=== PATIENT | female | born 1960 | race Caucasian/White ===

== ENCOUNTER 2019-12-24 17:35 | Inpatient (IN) | payer OTHER ==
[~2019-12-24] VITALS: Ht 142.2 cm; Wt 49.9 kg
--- NOTE | 2019-12-24 21:40 | NUR ---
Pt rec'd from [facility] from [facility] ED on settings of AC 14, VT 400, PEEP +5 and FIO2-50%. No resp. distress noted. Pt is awake and alert. Pt to be monitored throughout the shift and PRN SX. Shiley 6 is patent and secure; B/U Shiley 6 and BVM are both at bedside. Alexandre alarm parameters have been checked and remain audible.
[2019-12-24 22:00] VITALS: BP 118/86
--- NOTE | 2019-12-24 22:30 | NUR ---
received from [facility] direct admit dx: respiratory failure .came via paramedics .patient trach to vent ,able to mouth words and able to write intent . connected to icu monitor and respiratory therapist connecting patient to vent she has trach Shiley no 6,ac16/400/50% peep of 5 .rr 22 to 26 saturation 100%.she has a peg clamp .f/c to bsd .and photo taken to different skin issues ,s/p left hip surgery. call light palced with in reach and oriented with monitor .
--- NOTE | 2019-12-24 23:00 | NUR ---
called [facility] for admission orders spoked with freida stewart .
[2019-12-24] MEDS ORDERED: HYDROCODONE/APAP 5-325MG TABLET PO PRN (23:30)
[2019-12-24] MEDS ORDERED: ALBUTEROL SULFATE 2.5 MG/3 ML NEBU NEB PRN (23:30)
[2019-12-24] MEDS ORDERED: ZOLPIDEM 5 MG TABLET PO PRN (23:30)
[2019-12-24] MEDS ORDERED: IPRATROPIUM BROMIDE 0.5 MG/2.5 ML NEBU NEB PRN (23:30)
[2019-12-24] MEDS ORDERED: Z GUARD REMEDY PASTE 57 GM TUBE TOP PRN (23:30)
[2019-12-24] MEDS ORDERED: VANCOMYCIN IV 1,000 MG in IV DEXTROSE 5% 250 ML IV SCH (23:30)
[2019-12-24] MEDS ORDERED: ACETAMINOPHEN 325 MG TABLET PO PRN (23:30)
[2019-12-25] VITALS (7 sets, daily range): BP systolic 105–142; BP diastolic 70–100
[2019-12-25] MEDS: ONDANSETRON 4 MG/2 ML VIAL IV PRN (00:01)
[2019-12-25] MEDS: ENOXAPARIN SODIUM 30 MG/0.3 ML DISP.SYRIN SQ SCH ×2 (00:02→20:41)
[2019-12-25] MEDS ORDERED: PIPERACILLIN/TAZOBACTAM/D5W 50 ML IV ONE (00:59)
[2019-12-25] MEDS ORDERED: VANCOMYCIN IV 200 ML ONE (00:59)
--- NOTE | 2019-12-25 01:00 | NUR ---
called nursing curing room supervisor for dvt /scds pump .
[2019-12-25] MEDS ORDERED: MORPHINE SULFATE 2 MG/1 ML DISP.SYRIN IV ONE (02:30)
[2019-12-25] MEDS ORDERED: HYDROCODONE/APAP 10-325 MG TABLET PO PRN (02:30)
[2019-12-25] MEDS ORDERED: MORPHINE SULFATE 20 MG/1 ML ORAL LIQ. PO PRN (02:30)
--- NOTE | 2019-12-25 02:46 | NUR ---
CALLED [facility] FOR PAIN MEDICATION PATIENT VERY RESTLESS AND BANGING THE CALL LIGHT ,VERY ANXIOUS AND POINTING TO HER BACK AND LEFT HIP PAIN . 06/04.
[2019-12-25] MEDS ORDERED: MORPHINE SULFATE 2 MG/1 ML DISP.SYRIN ONE (02:59)
--- NOTE | 2019-12-25 04:34 | NUR ---
am care done ,changed soiled linens and gown . changed peg tube dressing ,photo taken site red and with greenish residual , abdomen distended but soft and + b/s in all quadrant .f/c done and oral care done.
[2019-12-25] MEDS: methylPREDNISolone SOD SUCC 125 MG/2 ML VIAL IV SCH ×5 (05:40→23:33)
[2019-12-25 05:47] LABS: BASOPHILS % (AUTO) 0.1 % (0.0-2.0); HEMATOCRIT 36.3 % (31.2-41.9); HEMOGLOBIN 12.2 g/dL (10.9-14.3); LYMPHOCYTES # (AUTO) 0.3 K/uL (20.0-40.0); LYMPHOCYTES % (AUTO) 3.2 % (20.5-51.5); MEAN CORPUSCULAR HEMOGLOBIN 30.4 uug (24.7-32.8); MEAN CORPUSCULAR HGB CONC 34 g/dL (32.3-35.6); MONOCYTES # (AUTO) 0.2 K/uL (2.0-10.0); MONOCYTES % (AUTO) 2.2 % (0.0-11.0); NEUTROPHILS # (AUTO) 8.3 K/uL (1.8-8.9); NEUTROPHILS % (AUTO) 94.5 % (38.5-71.5); PLATELET COUNT (AUTO) 331 K/uL (179-408); RED BLOOD CELL COUNT(AUTO) 4.03 MIL/uL (3.63-4.92); WHITE BLOOD COUNT (AUTO) 8.8 K/uL (3.8-11.8)
[2019-12-25] MEDS ORDERED: PIPERACILLIN SODIUM/TAZOBACTAM 3.375 G in IV DEXTROSE 5% 50 ML IV SCH ×2 (06:00→22:00)
[2019-12-25 06:03] LABS: ALANINE AMINOTRANSFERASE 97 U/L (14-59); ALKALINE PHOSPHATASE 161 U/L (50-136); ASPARTATE AMINOTRANSFERASE 37 U/L (15-37); BILIRUBIN,TOTAL 1.1 mg/dL (0.2-1.0); CARBON DIOXIDE 31 mmol/L (21-32); CHLORIDE 97 mmol/L (98-107); CHOLESTEROL 155 mg/dL (<200); CREATININE 0.3 mg/dL (0.6-1.3); GLUCOSE 113 mg/dL (74-106); HDL CHOLESTEROL 46 mg/dL (40-60); MAGNESIUM 1.9 mg/dL (1.8-2.4); PHOSPHOROUS 1.6 mg/dL (2.5-4.9); POTASSIUM 3.9 mmol/L (3.5-5.1); TRIGLYCERIDES 93 MG/DL (30-150); UREA NITROGEN, BLOOD 30 mg/dL (7-18)
[2019-12-25 06:06] LABS: THYROID STIMULATING HORMONE 0.787 mIU/mL (0.358-3.740)
[2019-12-25 08:27] LABS: ABG HCO3 31.3 mmol/L; ABG PCO2 48.1 mmHg (35.0-45.0); ABG PH 7.431 (7.350-7.450); ABG PO2 202.2 mmHg (75.0-100.0); ABG SITE LEFT RADIAL; ABG TOTAL HEMOGLOBIN 13.1 G/dL (12.0-16.0); COHb 1.2 % (0.5-1.5); MetHb 0.3 % (0.0-1.5); O2Hb 98.3 % (94.0-97.0); VENT MODE VENT - A/C; VT, ABG 400 mL
[2019-12-25] MEDS ORDERED: ACETAMINOPHEN 650 MG/20.3 ML LIQUID UDC GT PRN (09:00)
[2019-12-25] MEDS ORDERED: POTASSIUM PHOSPHATE MM 15 MMOL in IV NORMAL SALINE 250 ML IV ONE (09:00)
--- NOTE | 2019-12-25 09:20 | NUR ---
Clinical Pharmacy Note: Vancomycin Pharmacy To Dose Subjective: To start vancomycin in this 59 y/o female for suspected infection (waiting for MD note) Objective: weight 52kg height 142cm BUN/SCr 30/0.3 wbc 8.8 temp 98.2 Assessment/Plan Patient received vanco 1gm IVPB x1 today at 0130. Will start vanco 750mg IVPB q22hr for today estimated trough of 16 mcg/ml (if srcr 1.0). 1st dose due tonight at 2300. Will order trough before 4th scheduled dose (not yet ordered). Will will review renal function & adjust the dose if needed. Will follow
--- NOTE | 2019-12-25 09:30 | NUR ---
Seen,examined by YENNY De La Torre.Informed regarding Pt leaking bile around GT.
--- NOTE | 2019-12-25 09:30 | NUR ---
Seen,examined by
[2019-12-25] MEDS: PANTOPRAZOLE SODIUM 40 MG VIAL IV SCH (09:33)
[2019-12-25] MEDS: MORPHINE SULFATE 4 MG/1 ML DISP.SYRIN IV PRN ×4 (09:34→23:35)
[2019-12-25] MEDS ORDERED: ACET160S GT (11:03)
[2019-12-25] MEDS ORDERED: ACET160E61 PO (11:03)
[2019-12-25] MEDS ORDERED: ACET-2070 PO (11:03)
[2019-12-25] MEDS ORDERED: ASPI81TA31 GT (11:38)
[2019-12-25] MEDS ORDERED: CELE100C GT (11:41)
[2019-12-25] MEDS ORDERED: BISA10SU61 RC (11:54)
[2019-12-25] MEDS ORDERED: MULT1TAB73 GT (11:54)
[2019-12-25] MEDS: ALBUTEROL SULFATE 2.5 MG/3 ML NEBU NEB SCH ×3 (11:55→19:30)
[2019-12-25] MEDS: IPRATROPIUM BROMIDE 0.5 MG/2.5 ML NEBU NEB SCH ×3 (11:55→19:30)
--- NOTE | 2019-12-25 12:34 | NUR ---
WOUND CARE CONSULT: REVIEWED PHOTO DOCUMENTATION, CHART AND SPOKE WITH NURSING STAFF. ATTEMPTED TO DO SKIN ASSESSMENT BUT PT REFUSED AND STATED WAS TOO UNCOMFORTABLE AND SHORT OF BREATH. PT NOTED TO HAVE MULTIPLE WOUNDS PRESENT ON ADMISSION. G TUBE NOTED TO BE LEAKING GREENISH DRAINAGE. G TUBE IS CLAMPED. ALSO LEFT HIP INCISION WEEPING WITH EDEMA NOTED. RECOMMEND ORTHO FOLLOWUP. DISCUSSED WITH RN AND PMD TO CALL ORTHO. RN TO DISCUSS WITH PMD. RECOMMEND SURGICAL CONSULT. DR LIRA NOTIFIED OF CONSULT REQUEST. FIRST STEP LOW AIRLOSS MATTRESS ON ORDER. RECOMMENDATIONS MADE FOR SKIN PROTECTION. DISCUSSED WITH NURSING STAFF.
[2019-12-25] MEDS: METOCLOPRAMIDE HCL 10 MG/10 ML UDC GT SCH ×3 (12:49→23:34)
[2019-12-25] MEDS ORDERED: BISACODYL 10 MG SUPP.RECT RC PRN (13:15)
[2019-12-25] MEDS ORDERED: PIPERACILLIN SODIUM/TAZOBACTAM 3.375 G in IV DEXTROSE 5% 50 ML IV ONE (14:00)
[2019-12-25] MEDS: LORAZEPAM 1 MG TABLET GT PRN ×2 (15:20→22:16)
[2019-12-25] MEDS ORDERED: IOHEXOL 350 100 ML INFUS..BTL ONE (17:01)
[2019-12-25] MEDS ORDERED: IV NORMAL SALINE 250 ML IV ONE (17:01)
[2019-12-25] MEDS ORDERED: SWABABLE VALVE TRANSFER SET EA MC ONE (17:01)
[2019-12-25] MEDS: CELECOXIB 100 MG CAPSULE GT SCH (18:03)
[2019-12-25] MEDS: CLOTRIMAZOLE 1% CREAM 30 GM TUBE TOP SCH ×2 (18:03→22:28)
--- NOTE | 2019-12-25 20:00 | NUR ---
RECEIVED PT NONRESPONSIVE TO ANY STIMULI. ORALLY INTUBATED TO VENT W/ SETTINGS OF AC-12,TV-500,FIO2-50%,W/ O2 SAT OF 100%. NGT ON R NARE, CHECKED PLACEMENT & CHECKED RESIDUAL 10CC NOTED, TUBE FDG OF GLUCERNA 1.2 @ 30CC /HR. IVF D51/4 NS W/ 20MEQ KCL @ 75CC/HR ON RAC. TEMP- 101.5, COOLING MEASURES GIVEN. TYLENOL LIQUID GIVEN VIA NGT. REPOSITIONED ON HIS SIDE W/ HOB ELEVATED. Addendum: 12/25/19 at 2312 by NOEL PACHECO RN CHARTING IS ERROR.,WRONG PT
--- NOTE | 2019-12-25 20:00 | NUR ---
RECEIVED PT FOLLOWS TO COMMAND. TRACH TO VENT W/ SETTINGS OF AC-16,TV-400, FIO2-50%, PEEP-+5 W/ O2 SAT OF 98%. SUCTIONED VIA TRACH W/ BLOOD TINGED THICK MUCOUS.PT PULLED OUT HEP LOCK ON R WRIST.G-TUBE INTACT& PATENT W/ BILE DRAINAGE AROUND THE AREA.REPOSITIONED PT ON HER SIDE W/ HOB ELEVATED. RESTARTED HEP LOCK W/ #22 ANGIO CATHON L HAND.
[2019-12-25] MEDS: CEFEPIME HCL 1 G in IV DEXTROSE 5% 50 ML IV SCH (21:24)
--- NOTE | 2019-12-25 21:40 | NUR ---
WOUND CULTURE & URINE CULTURE SENT TO LAB.
--- NOTE | 2019-12-25 22:15 | NUR ---
SPUTUM SEND TO LAB FOR CULTURE & GRAM STAIN.
[2019-12-25] MEDS: ZOLPIDEM 5 MG TABLET GT PRN (22:16)
[2019-12-25] MEDS: VANCOMYCIN IV 750 MG in IV DEXTROSE 5% 250 ML IV SCH (22:28)
[2019-12-26] MEDS: MORPHINE SULFATE 4 MG/1 ML DISP.SYRIN IV PRN ×2 (03:32→09:35)
[2019-12-26 04:00] VITALS: BP 113/90
--- NOTE | 2019-12-26 05:00 | NUR ---
AM CARE DONE. CLEANED WOUND OF R ARM & WRAPPED W/ KERLIX DRSG. CLEANED G-TUBE SITE & DRSG APPLIED, CONT OOZING BILE DRAINAGE AROUND THE SITE. WOUND CARE DONE ON HER BACK. REPOSITIONED ON HER SIDE W/ HOB ELEVATED.
[2019-12-26] MEDS: CEFEPIME HCL 1 G in IV DEXTROSE 5% 50 ML IV SCH ×3 (05:24→23:30)
[2019-12-26] MEDS: methylPREDNISolone SOD SUCC 125 MG/2 ML VIAL IV SCH (05:24)
[2019-12-26] MEDS: METOCLOPRAMIDE HCL 10 MG/10 ML UDC GT SCH ×3 (05:25→17:37)
[2019-12-26 05:43] LABS: ABG BASE EXCESS 3.5 mmol/L; ABG HCO3 28.3 mmol/L; ABG PCO2 43.7 mmHg (35.0-45.0); ABG PH 7.429 (7.350-7.450); ABG PO2 118.3 mmHg (75.0-100.0); ABG SITE LEFT RADIAL; ABG TOTAL HEMOGLOBIN 13.4 G/dL (12.0-16.0); COHb 1.6 % (0.5-1.5); MetHb 0.3 % (0.0-1.5); O2Hb 97.2 % (94.0-97.0); VENT MODE VENT - A/C; VT, ABG 400 mL
[2019-12-26 06:13] LABS: BASOPHILS # (AUTO) 0.1 K/uL (0.0-8.0); BASOPHILS % (AUTO) 0.3 % (0.0-2.0); HEMATOCRIT 38.8 % (31.2-41.9); HEMOGLOBIN 12.6 g/dL (10.9-14.3); LYMPHOCYTES # (AUTO) 0.2 K/uL (20.0-40.0); LYMPHOCYTES % (AUTO) 0.8 % (20.5-51.5); MEAN CORPUSCULAR HEMOGLOBIN 29.3 uug (24.7-32.8); MEAN CORPUSCULAR HGB CONC 33 g/dL (32.3-35.6); MEAN CORPUSCULAR VOLUME 90.3 fL (75.5-95.3); MONOCYTES # (AUTO) 1.3 K/uL (2.0-10.0); MONOCYTES % (AUTO) 4.8 % (0.0-11.0); NEUTROPHILS # (AUTO) 25.8 K/uL (1.8-8.9); NEUTROPHILS % (AUTO) 94.1 % (38.5-71.5); PLATELET COUNT (AUTO) 359 K/uL (179-408); WHITE BLOOD COUNT (AUTO) 27.4 K/uL (3.8-11.8)
[2019-12-26 06:45] LABS: CARBON DIOXIDE 30 mmol/L (21-32); CHLORIDE 98 mmol/L (98-107); CREATININE 0.3 mg/dL (0.6-1.3); GLUCOSE 130 mg/dL (74-106); MAGNESIUM 1.9 mg/dL (1.8-2.4); PHOSPHOROUS 1.8 mg/dL (2.5-4.9); POTASSIUM 3.2 mmol/L (3.5-5.1); UREA NITROGEN, BLOOD 30 mg/dL (7-18)
--- NOTE | 2019-12-26 06:45 | NUR ---
RESTING QUITELY THIS TIME AFTER MEDICATED W/ MORPHINE 4MG IVP.V/S STABLE.
--- NOTE | 2019-12-26 06:53 | NUR ---
HR-160-170/MIN STACH BP STABLE, CALLED DR MAYEN, WILL CALL BACK.
[2019-12-26] MEDS: IPRATROPIUM BROMIDE 0.5 MG/2.5 ML NEBU NEB SCH ×4 (07:35→20:10)
[2019-12-26] MEDS: ALBUTEROL SULFATE 2.5 MG/3 ML NEBU NEB SCH ×4 (07:35→20:10)
[2019-12-26 08:00] VITALS: BP 128/90
[2019-12-26] MEDS ORDERED: NEUTRA PHOS PACKET PO ONE (08:23)
--- NOTE | 2019-12-26 08:44 | NUR ---
Dr. Day here to see pt. Full report given. New orders received.
[2019-12-26] MEDS: PANTOPRAZOLE SODIUM 40 MG VIAL IV SCH (08:48)
[2019-12-26] MEDS: POTASSIUM CHLORIDE 50 ML IV SCH ×2 (08:49→09:55)
[2019-12-26] MEDS: CLOTRIMAZOLE 1% CREAM 30 GM TUBE TOP SCH ×2 (08:49→22:02)
[2019-12-26] MEDS: ASPIRIN 81 MG TAB.CHEW GT SCH (08:49)
[2019-12-26] MEDS: MULTIVITAMINS,THERAPEUTIC TABLET GT SCH (08:49)
[2019-12-26] MEDS: CELECOXIB 100 MG CAPSULE GT SCH ×2 (08:51→17:33)
[2019-12-26] MEDS ORDERED: MULTIVITAMIN GT SCH (09:00)
--- NOTE | 2019-12-26 09:21 | NUR ---
BEEF LUGGER Britt Lieberman here to see pt. Full report given. New orders received.
--- NOTE | 2019-12-26 09:53 | NUR ---
PICC line RN here to see pt for midline insertion.
--- NOTE | 2019-12-26 10:00 | NUR ---
Pt refusing to sign consent for CT angiogram. Explained and educated pt of risks but pt still continued to refuse. YENNY De La Torre already made aware.
[2019-12-26] MEDS: IV DEXTROSE 5W-0.45% NS + KCL 1,000 ML IV PRN (10:06)
[2019-12-26] MEDS: LIDOCAINE 5% PATCH TD SCH (10:46)
--- NOTE | 2019-12-26 11:30 | NUR ---
Spoke with YENNY De La Torre on the telephone regarding pt's robaxin home med order for muscle spasms. New orders received.
[2019-12-26] MEDS ORDERED: METHOCARBAMOL 500 MG TABLET PO PRN ×2 (11:45→15:15)
--- NOTE | 2019-12-26 11:48 | NUR ---
Clinical Pharmacy Note: Vancomycin Pharmacy To Dose Subjective: To continue vancomycin in this 59 y/o female for sepsis, COPD exacerbation(possible VAP) Objective: weight 52kg height 142cm BUN/SCr 30/0.3 wbc 27.4 temp 98.6 Assessment/Plan Will continue vanco 750mg IVPB q22hr for estimated trough of 16 mcg/ml (if srcr 1.0). 3rd dose due tonight at 2100. Will order trough before 4th scheduled dose (not yet ordered). Will will review renal function & adjust the dose if needed. Will follow
--- NOTE | 2019-12-26 11:55 | NUR ---
Full telephone SBAR report given to DAVE Cox.
[2019-12-26 12:00] VITALS: BP 132/89
--- NOTE | 2019-12-26 13:09 | NUR ---
Pt brought up and transferred to 3rd floor with RT and HEAT TREAT INSPECTOR. Pt stable and nad noted upon transfer.
[2019-12-26] MEDS: HYDROCODONE/APAP 10-325 MG TABLET GT PRN (13:45)
[2019-12-26] MEDS: LORAZEPAM 1 MG TABLET GT PRN (13:45)
--- NOTE | 2019-12-26 14:07 | NUR ---
Patient received at 1315 from CCU to telemetry, received report from Ruddy RN, complaints of pain, prn Shreve given per GT, patient has garcia, ventilator dependent, MD Alexandra notified of patients arrival
--- NOTE | 2019-12-26 14:28 | NUR ---
patient refused to sign consent for debridement
[2019-12-26 15:48] VITALS: BP 128/86
[2019-12-26] MEDS: CARVEDILOL 3.125 MG TABLET PO SCH (17:33)
--- NOTE | 2019-12-26 18:09 | NUR ---
YENNY De La Torre made aware of patients elevated wbc, all dressing changed at this time, suction provided
--- NOTE | 2019-12-26 19:00 | NUR ---
Received patient in bed. No signs of distress noted. AxOx4 able to make needs known through white board. Trach in midline, vent functioning well, patient is on tele with heart rate ranging 105-115.
[2019-12-26 20:01] VITALS: BP 98/66
[2019-12-26] MEDS ORDERED: methylPREDNISolone SOD SUCC 40 MG/ML VIAL IV SCH (21:00)
[2019-12-26] MEDS ORDERED: methylPREDNISolone SOD SUCC 125 MG/2 ML VIAL IV SCH (21:00)
--- NOTE | 2019-12-26 21:00 | NUR ---
G-tube in place dressing is dry and intact. NPO maintained. Ordered medications given, no residual, abdomen soft and tender. Resting Fairly well, IV site intact and infusing well., no ssx of infiltration.
[2019-12-26] MEDS: ATORVASTATIN 10 MG TABLET PO SCH (21:52)
[2019-12-26] MEDS: ENOXAPARIN SODIUM 30 MG/0.3 ML DISP.SYRIN SQ SCH (21:55)
[2019-12-26] MEDS: VANCOMYCIN IV 750 MG in IV DEXTROSE 5% 250 ML IV SCH (22:01)
--- NOTE | 2019-12-26 23:00 | NUR ---
Scant amount of urine output noted from the Godoy, highly sedimented urine in the tubing. Changed tubing. Repositioned patient for comfort. Suctioned as requested and procedure tolerated well, thin white mucous secretions noted.
--- NOTE | 2019-12-27 | NUR ---
Facial grimace noted, patient stated that she is in a lot of pain, " she is hurting", left hip, dressing intact no drained noted. Patients vitals are within normal limits. All needs attended to. Medicated for pain. Will monitor for effectiveness. Still on tele, no changes noted.
[2019-12-27 00:03] VITALS: BP 140/89
[2019-12-27] MEDS: MORPHINE SULFATE 2 MG/1 ML DISP.SYRIN IV PRN ×3 (00:03→12:43)
[2019-12-27] MEDS: METOCLOPRAMIDE HCL 10 MG/10 ML UDC GT SCH ×5 (00:23→23:04)
--- NOTE | 2019-12-27 01:00 | NUR ---
IV medications administered. Slept at short intervals. Changed abdominal dressing, dry and intact. Patient is able to make needs known. All safety measure in place, bed is locked/lowered in low position, bed locked, audible sounds of alarm systems in place, call light with reach. will continue to monitor
[2019-12-27] MEDS: LORAZEPAM 1 MG TABLET GT PRN ×2 (01:45→12:38)
[2019-12-27 04:19] VITALS: BP 141/81
[2019-12-27] MEDS: IV DEXTROSE 5W-0.45% NS + KCL 1,000 ML IV PRN (04:22)
--- NOTE | 2019-12-27 04:30 | NUR ---
Tele reading sinus tachy 170 high, ranging 150-160 sustained for 3 minutes before changes.Continuous monitoring of patients condition done. Bladder scan done and showed 0 ml. no discomfort noted patient is resting. Ativan was given, patient able to relax. Saturation, bedside pulse oximeter showing 99-100%. Sinus tachy with occasional SVT noted in 171. Dr. Cheng notified, no change in condition, STAT EKG ordered and done. Patient complained of severe pain in Left hip. Morphine 4mg IV x1 given. Copious amount of gastric drainage from the gtube site, dressing changed, intact and dry. Repositioned patient and completed am care. Godoy catheter checked for placement, reinflated balloon. Dr. Smith notified regarding elevated heart rate, no further orders given.
[2019-12-27] MEDS ORDERED: MORPHINE SULFATE 4 MG/1 ML DISP.SYRIN IV ONE (05:15)
[2019-12-27] MEDS: CARVEDILOL 3.125 MG TABLET PO SCH ×2 (05:21→12:38)
[2019-12-27 06:17] LABS: ABG BASE EXCESS 3.5 mmol/L; ABG HCO3 26.1 mmol/L; ABG PCO2 33.8 mmHg (35.0-45.0); ABG PH 7.505 (7.350-7.450); ABG SITE RIGHT BRACHIAL; ABG TOTAL HEMOGLOBIN 15.6 G/dL (12.0-16.0); COHb 1.3 % (0.5-1.5); MetHb 0.5 % (0.0-1.5); O2Hb 97.5 % (94.0-97.0); VENT MODE VENT - A/C; VT, ABG 500 mL
[2019-12-27] MEDS: CEFEPIME HCL 1 G in IV DEXTROSE 5% 50 ML IV SCH ×3 (06:17→21:07)
--- NOTE | 2019-12-27 06:30 | NUR ---
Patient is resting comfortably at this time. Will endorse to AM shift in fair condition.
[2019-12-27 06:35] LABS: BASOPHILS % (AUTO) 0.1 % (0.0-2.0); HEMOGLOBIN 15.2 g/dL (10.9-14.3); LYMPHOCYTES # (AUTO) 0.2 K/uL (20.0-40.0); LYMPHOCYTES % (AUTO) 0.9 % (20.5-51.5); MEAN CORPUSCULAR HEMOGLOBIN 30.2 uug (24.7-32.8); MEAN CORPUSCULAR HGB CONC 33 g/dL (32.3-35.6); MONOCYTES # (AUTO) 0.6 K/uL (2.0-10.0); MONOCYTES % (AUTO) 2.3 % (0.0-11.0); NEUTROPHILS # (AUTO) 24.6 K/uL (1.8-8.9); NEUTROPHILS % (AUTO) 96.7 % (38.5-71.5); PLATELET COUNT (AUTO) 403 K/uL (179-408); RED BLOOD CELL COUNT(AUTO) 5.05 MIL/uL (3.63-4.92); WHITE BLOOD COUNT (AUTO) 25.4 K/uL (3.8-11.8)
[2019-12-27 06:53] LABS: CREATININE 0.6 mg/dL (0.6-1.3); MAGNESIUM 1.9 mg/dL (1.8-2.4); PHOSPHOROUS 1.9 mg/dL (2.5-4.9); POTASSIUM 4.6 mmol/L (3.5-5.1)
[2019-12-27] MEDS: ALBUTEROL SULFATE 2.5 MG/3 ML NEBU NEB SCH ×4 (07:35→19:30)
[2019-12-27] MEDS: IPRATROPIUM BROMIDE 0.5 MG/2.5 ML NEBU NEB SCH ×4 (08:09→19:30)
[2019-12-27] MEDS ORDERED: PANTOPRAZOLE ORAL SUSPENSION 40 MG SUSPDR.PKT GT SCH (09:00)
[2019-12-27] MEDS: CLOTRIMAZOLE 1% CREAM 30 GM TUBE TOP SCH ×2 (09:00→20:45)
[2019-12-27] MEDS ORDERED: SODIUM PHOSPHATE MM 15 MMOL in IV NORMAL SALINE 250 ML IV ONE (10:45)
[2019-12-27] MEDS ORDERED: IV D5%-1/2NS-KCL 10 MEQ 1,000 ML IV ONE (10:45)
--- NOTE | 2019-12-27 12:19 | NUR ---
Clinical Pharmacy Note: Vancomycin Pharmacy To Dose Subjective: To continue vancomycin in this 59 y/o female for sepsis, COPD exacerbation(possible VAP) Objective: weight 52kg height 142cm BUN/SCr 31/0.6 wbc 25.4 temp 98.7 Trough pending tonight at 1830 Assessment/Plan Although Scr increased, as regimen based off of higher Scr estimate of 1.0 and trough due tonight, will continue vanco 750mg IVPB q22hr for estimated trough of 16 mcg/ml (if srcr 1.0). Trough due tonight @1830. RN endorsed to hold dose if were to result >20. Will check level in am and adjust regimen as needed. Will follow
[2019-12-27] MEDS: ASPIRIN 81 MG TAB.CHEW GT SCH (12:37)
[2019-12-27] MEDS: CELECOXIB 100 MG CAPSULE GT SCH ×2 (12:38→16:49)
[2019-12-27] MEDS: MULTIVITAMINS,THERAPEUTIC TABLET GT SCH (12:38)
[2019-12-27] MEDS: LIDOCAINE 5% PATCH TD SCH (12:42)
[2019-12-27] MEDS ORDERED: METOPROLOL TARTRATE 5 MG/5 ML VIAL IVP PRN (13:45)
[2019-12-27] MEDS: METOPROLOL TARTRATE 25 MG TABLET PO SCH ×3 (13:45→23:58)
--- NOTE | 2019-12-27 13:45 | NUR ---
Med. held. Patient just received coreg.
[2019-12-27] MEDS: HYDROCODONE/APAP 10-325 MG TABLET GT PRN ×2 (16:47→23:04)
[2019-12-27] MEDS: VANCOMYCIN IV 750 MG in IV DEXTROSE 5% 250 ML IV SCH (17:02)
[2019-12-27 17:12] VITALS: BP 148/69
[2019-12-27 20:18] VITALS: BP 140/65
[2019-12-27] MEDS: ATORVASTATIN 10 MG TABLET PO SCH (20:45)
[2019-12-27] MEDS: ENOXAPARIN SODIUM 30 MG/0.3 ML DISP.SYRIN SQ SCH (20:47)
--- NOTE | 2019-12-27 21:00 | NUR ---
dressing changed to GT site; pt's skin jason GT appears raw; applied skin barrier; pt refused to have dressing on the sacrum and back changed.
[2019-12-27] MEDS: ZOLPIDEM 5 MG TABLET GT PRN (21:27)
[2019-12-27 23:25] VITALS: BP 138/87
--- NOTE | 2019-12-28 | NUR ---
pt refused to be repositioned; pt again refused dressing to her sacrum and back.
[2019-12-28] MEDS: MORPHINE SULFATE 2 MG/1 ML DISP.SYRIN IV PRN ×5 (00:08→20:54)
[2019-12-28] MEDS: LORAZEPAM 1 MG TABLET GT PRN (03:17)
--- NOTE | 2019-12-28 04:20 | NUR ---
pt refused to be repositioned to opposite side; also refusing dressing change to sacrum and back including incision site.
[2019-12-28] MEDS: METOPROLOL TARTRATE 25 MG TABLET PO SCH (06:06)
[2019-12-28] MEDS: CEFEPIME HCL 1 G in IV DEXTROSE 5% 50 ML IV SCH ×3 (06:06→21:00)
[2019-12-28] MEDS: METOCLOPRAMIDE HCL 10 MG/10 ML UDC GT SCH (06:06)
[2019-12-28] MEDS ORDERED: METHOCARBAMOL 500 MG TABLET GT PRN (06:17)
[2019-12-28 06:45] LABS: BASOPHILS % (AUTO) 0.1 % (0.0-2.0); EOSINOPHILS % (AUTO) 0.1 % (0.0-7.0); HEMATOCRIT 43.6 % (31.2-41.9); HEMOGLOBIN 14.3 g/dL (10.9-14.3); LYMPHOCYTES # (AUTO) 0.2 K/uL (20.0-40.0); LYMPHOCYTES % (AUTO) 2.2 % (20.5-51.5); MEAN CORPUSCULAR HEMOGLOBIN 30.1 uug (24.7-32.8); MEAN CORPUSCULAR HGB CONC 33 g/dL (32.3-35.6); MEAN CORPUSCULAR VOLUME 91.3 fL (75.5-95.3); MONOCYTES # (AUTO) 0.3 K/uL (2.0-10.0); MONOCYTES % (AUTO) 2.6 % (0.0-11.0); NEUTROPHILS # (AUTO) 9.4 K/uL (1.8-8.9); RED BLOOD CELL COUNT(AUTO) 4.77 MIL/uL (3.63-4.92)
--- NOTE | 2019-12-28 06:45 | NUR ---
dressing changed to GT site, sacrum, back and left hip; trache care done; suctioned oral and trache secretions; morphine administered;
[2019-12-28 07:02] LABS: PLATELET COUNT (AUTO) 225 K/uL (179-408); WHITE BLOOD COUNT (AUTO) 9.9 K/uL (3.8-11.8)
[2019-12-28 07:11] LABS: CREATININE 0.5 mg/dL (0.6-1.3); MAGNESIUM 1.8 mg/dL (1.8-2.4); PHOSPHOROUS 3.2 mg/dL (2.5-4.9); POTASSIUM 5.2 mmol/L (3.5-5.1)
--- NOTE | 2019-12-28 07:25 | NUR ---
PT RECEIVED TRACH TO VENT ON CMV, SHILEY #[id number] TRACH IS PATENT AND SECURE. VENT PARAMETERS AND ALARMS CHECKED, ALARMS ARE AUDIBLE. PT IS ON A GLASS VENT ON SETTINGS OF A/C 16, VT 400, 35%, PEEP +5. PT IS TOLERATING VENT WELL, NO RESP. DISTRESS NOTED. BVM AT BEDSIDE. VENT PLUGGED INTO RED OUTLET. SUCTION PRN. WILL CONTINUE TO MONITOR.
[2019-12-28] MEDS: LIDOCAINE 5% PATCH TD SCH (08:02)
[2019-12-28] MEDS: CLOTRIMAZOLE 1% CREAM 30 GM TUBE TOP SCH ×2 (08:33→20:55)
[2019-12-28] MEDS: MULTIVITAMINS,THERAPEUTIC TABLET GT SCH (09:00)
[2019-12-28] MEDS: CELECOXIB 100 MG CAPSULE GT SCH ×2 (09:00→18:00)
[2019-12-28] MEDS: ASPIRIN 81 MG TAB.CHEW GT SCH (09:00)
[2019-12-28] MEDS ORDERED: methylPREDNISolone SOD SUCC 40 MG/ML VIAL IV SCH (09:00)
[2019-12-28] MEDS: PANTOPRAZOLE SODIUM 40 MG VIAL IV SCH (09:09)
[2019-12-28] MEDS: FLUCONAZOLE 200 MG/NS 100ML IV 200 MG in PREMIXED 1 EACH IV SCH (09:09)
[2019-12-28] MEDS: ALBUTEROL SULFATE 2.5 MG/3 ML NEBU NEB SCH ×4 (09:09→19:49)
[2019-12-28] MEDS: IPRATROPIUM BROMIDE 0.5 MG/2.5 ML NEBU NEB SCH ×4 (09:09→19:49)
--- NOTE | 2019-12-28 09:17 | NUR ---
all po medication through the g tube hold DUE TO .G TUBE IS LEAKING MD MADE AWARE
--- NOTE | 2019-12-28 09:30 | NUR ---
pt is angry and pulling the heart monitor and iv threatening to leave the hospital code arriaga activate Addendum: 12/28/19 at 1013 by BHAVNA MERCHANT LVN wrong pt
--- NOTE | 2019-12-28 09:40 | NUR ---
talk to dr swann and alina crisis team ,alina said she will be here in one hrs Addendum: 12/28/19 at 1013 by BHAVNA MERCHANT LVN wrong patient
--- NOTE | 2019-12-28 10:09 | NUR ---
pt seen by dr daigle Addendum: 12/28/19 at 1014 by BHAVNA MERCHANT LVN wrong pt
--- NOTE | 2019-12-28 10:09 | NUR ---
code espana all clear Addendum: 12/28/19 at 1014 by BHAVNA MERCHANT LVN wrong pt
--- NOTE | 2019-12-28 10:28 | NUR ---
Clinical Pharmacy Note: Vancomycin Pharmacy To Dose Subjective: To continue vancomycin in this 59 y/o female for sepsis, COPD exacerbation (possible VAP) Objective: weight 52kg height 142cm BUN/SCr 40/0.5 wbc 7.9 temp 99.1 Vanco trough level on 12/26 at 1830: 49.9 (not accurate- DAVE patino 1900 dose at 1700- level drawn during or after dose) Vanco trough level on 12/27 at 1630: pending Assessment/Plan Since trough level was drawn during infusion of 4th dose (DAVE patino early). Will repeat the level today at 1630. Will adjust the dose if needed. Will follow Addendum: 12/28/19 at 1738 by MEAGHAN ZAFAR ADM the Vanco trough came back @ 15.4 (within normal range) will contiue with current dose of 750 mg q22h. will Continue to monitor renal fxn and levels.
[2019-12-28 11:16] VITALS: BP 97/57
[2019-12-28] MEDS: METOPROLOL TARTRATE 25 MG TABLET GT SCH ×2 (11:31→18:00)
[2019-12-28] MEDS: METOCLOPRAMIDE HCL 10 MG/2 ML VIAL IV SCH ×2 (11:35→18:51)
--- NOTE | 2019-12-28 14:11 | NUR ---
Frame Straightener Consultation: 12:10pm: GREGORY met with DAVE Hyman and discussed patient's case and need for SS consultation. SS consultation requested for non-compliance. SW then met with this patient, who was in her assigned hospital bed, awake, alert, receptive to meeting with this SW. Patient is a 59 year old female, trach, vent, g-tube. Patient is not verbally communicative, however is able to communicate by using a white board to write out her responses. Patient reported that she has been living at [facility] for the past 2 months. Discharge plans discussed and patient nodded her head up and down indicating "yes" for returning back to [facility] after this hospitalization. SW reviewed the contact persons names listed on patient's face sheet, Amalia Deonte Marrerojelena and Shania Kovacs, and patient wrote "yes" on her white board. SW generated a discussion about receiving care and treatment during this hospitalization, and asked the patient if she would like all necessary care and treatments while in the hospital, and patient wrote "yes" on the white board. Per nursing report, patient has been inconsistent with accepting nursing care for her multiple wounds, and that nursing has been educating the patient on the importance of skin care and wound treatment. SW reinforced with the patient the importance of allowing the nurses to provide the necessary care for the patient, and patient nodded her head up and down, indicating "yes". Patient also wrote "yes" on her white board, along with writing that she was currently in pain. SW observed facial grimacing on patient's face. SW asked patient if patient had any other questions or concerns for the SW at this time, and patient once again wrote "pain" on her white board. SW ended this interview by thanking patient for her time, and informed the patient that SW would let her nurse know that patient was expressing having pain. GREGORY then met with DAVE Sinclair and informed her that patient is expressing pain. Dottie stated she would meet with the patient to address her concerns, and headed to the patient's room. GREGORY then met with MARTINA Perez and informed her of above. MARTINA to assist patient with discharge planning. At this time, due to patient's multiple wounds and inconsistencies with allowing nurses to provide certain treatments, this SW will make an APS report for self-neglect.
--- NOTE | 2019-12-28 14:53 | NUR ---
APS report made by this SW for possible neglect/self-neglect. APS report # [id number].
[2019-12-28 15:55] VITALS: BP 98/57
[2019-12-28] MEDS: VANCOMYCIN IV 750 MG in IV DEXTROSE 5% 250 ML IV SCH (17:38)
--- NOTE | 2019-12-28 19:40 | NUR ---
RECEIVED PT ON CONTINUOUS VENT. TRACH IN PLACED AND SECURED WITH TRACH TIE. VENT CHECKED, ALARMS WORKING WELL AND AUDIBLE. IN LINE TX GIVEN ORDERED. NO DISTRESS NOTED AT THIS TIME. WILL CONTINUE TO MONITOR.
[2019-12-28 20:27] VITALS: BP 110/56
[2019-12-28] MEDS: ENOXAPARIN SODIUM 30 MG/0.3 ML DISP.SYRIN SQ SCH (20:57)
[2019-12-28] MEDS: ATORVASTATIN 10 MG TABLET PO SCH (21:00)
--- NOTE | 2019-12-28 21:53 | NUR ---
Received pt resting in bed. Pt on continuous vent and trach in place. RT was at bedside for breathing treatment. VSS. Due meds given as ordered. Pt communicates through writing on white board. Complain of 8/10 pain on the left hip and back and requested for morphine. Medicated for pain x1. Lipitor held due to GT malfunction and leakage. MD aware of GT problem. Air mattress in place, turned and repositioned. Godoy catheter also in place. Left upper arm midline, patent and intact. Safety measures maintained. Call light and personal items within reach. Will continue to monitor.
[2019-12-29] MEDS: METOCLOPRAMIDE HCL 10 MG/2 ML VIAL IV SCH ×4 (00:34→18:00)
[2019-12-29 01:31] VITALS: BP 100/58
[2019-12-29] MEDS: CEFEPIME HCL 1 G in IV DEXTROSE 5% 50 ML IV SCH ×3 (05:03→22:00)
[2019-12-29 05:36] LABS: BASOPHILS % (AUTO) 0.1 % (0.0-2.0); HEMATOCRIT 35.4 % (31.2-41.9); HEMOGLOBIN 11.9 g/dL (10.9-14.3); LYMPHOCYTES # (AUTO) 0.2 K/uL (20.0-40.0); LYMPHOCYTES % (AUTO) 2.2 % (20.5-51.5); MEAN CORPUSCULAR HEMOGLOBIN 30.1 uug (24.7-32.8); MEAN CORPUSCULAR HGB CONC 34 g/dL (32.3-35.6); MEAN CORPUSCULAR VOLUME 89.6 fL (75.5-95.3); MONOCYTES # (AUTO) 0.3 K/uL (2.0-10.0); MONOCYTES % (AUTO) 2.7 % (0.0-11.0); NEUTROPHILS # (AUTO) 9.7 K/uL (1.8-8.9); PLATELET COUNT (AUTO) 268 K/uL (179-408); RED BLOOD CELL COUNT(AUTO) 3.95 MIL/uL (3.63-4.92); WHITE BLOOD COUNT (AUTO) 10.2 K/uL (3.8-11.8)
[2019-12-29 05:44] LABS: ALANINE AMINOTRANSFERASE 20 U/L (14-59); ALKALINE PHOSPHATASE 86 U/L (50-136); ASPARTATE AMINOTRANSFERASE 11 U/L (15-37); BILIRUBIN,TOTAL 0.9 mg/dL (0.2-1.0); CARBON DIOXIDE 26 mmol/L (21-32); CHLORIDE 99 mmol/L (98-107); CREATINE KINASE, TOTAL < 7 U/L (26-192); CREATININE 0.5 mg/dL (0.6-1.3); GLUCOSE 96 mg/dL (74-106); MAGNESIUM 2.4 mg/dL (1.8-2.4); PHOSPHOROUS 2.8 mg/dL (2.5-4.9); POTASSIUM 4.2 mmol/L (3.5-5.1); TOTAL PROTEIN, SERUM 4.9 g/dL (6.4-8.2); UREA NITROGEN, BLOOD 41 mg/dL (7-18)
[2019-12-29 06:00] VITALS: BP 118/68
[2019-12-29] MEDS: METOPROLOL TARTRATE 25 MG TABLET GT SCH ×3 (06:00→12:00)
[2019-12-29] MEDS: MORPHINE SULFATE 2 MG/1 ML DISP.SYRIN IV PRN ×2 (06:15→13:27)
--- NOTE | 2019-12-29 06:44 | NUR ---
Pt slept comfortably at night. Due meds given as ordered. All needs attended to promptly. Skin care rendered. Will endorse accordingly to oncoming shift. Continue to monitor.
[2019-12-29] MEDS: IPRATROPIUM BROMIDE 0.5 MG/2.5 ML NEBU NEB SCH ×4 (08:45→20:30)
[2019-12-29] MEDS: ALBUTEROL SULFATE 2.5 MG/3 ML NEBU NEB SCH ×4 (08:45→20:30)
[2019-12-29] MEDS: ASPIRIN 81 MG TAB.CHEW GT SCH (09:00)
[2019-12-29] MEDS: MULTIVITAMINS,THERAPEUTIC TABLET GT SCH (09:00)
[2019-12-29] MEDS: CELECOXIB 100 MG CAPSULE GT SCH (09:00)
[2019-12-29 09:30] VITALS: BP 146/87
[2019-12-29] MEDS: LIDOCAINE 5% PATCH TD SCH (09:38)
[2019-12-29] MEDS: FLUCONAZOLE 200 MG/NS 100ML IV 200 MG in PREMIXED 1 EACH IV SCH (09:39)
[2019-12-29] MEDS: PANTOPRAZOLE SODIUM 40 MG VIAL IV SCH (09:40)
[2019-12-29] MEDS: methylPREDNISolone SOD SUCC 40 MG/ML VIAL IV SCH (09:40)
--- NOTE | 2019-12-29 09:48 | NUR ---
Clinical Pharmacy Note: Vancomycin Pharmacy To Dose Subjective: To continue vancomycin in this 59 y/o female for sepsis, COPD exacerbation (possible VAP) Objective: weight 52kg height 142cm BUN/SCr 41/0.5 wbc 10.2 temp 98.3 Vanco trough level on 12/26 at 1830: 49.9 (not accurate- RN hung 1900 dose at 1700- level drawn during or after dose) Vanco trough level on 12/27 at 1630: 15.4 Assessment/Plan Since vanco trough level is within therapeutic range, will continue same dose of vanco 750 mg IVPB q22h for today. Next dose today at 1500. Will monitor renal function & adjust the dose or repeat level when needed. Will follow
--- NOTE | 2019-12-29 10:00 | NUR ---
Patient seen and examined by Thomas Farmer PRESS BRAKE OPERATOR and ordered to hold medications via G-tube since G-tube is not working.
[2019-12-29] MEDS: CLOTRIMAZOLE 1% CREAM 30 GM TUBE TOP SCH ×2 (10:47→21:34)
[2019-12-29] MEDS ORDERED: TPN/PPN PER PHARMACY IV PRN (13:45)
[2019-12-29] MEDS ORDERED: IV D5W-0.45% NS 1000 ML BAG IV ONE (13:45)
--- NOTE | 2019-12-29 14:30 | NUR ---
Received call from pharmacy for macronutrient recommendation for TPN. Based on estimated nutritional needs suggest the followinml/hour x 24 hour infusion/Day (D10 & 4.25 AA) 250ml 20% Lipids x 3 per week (start 12/30/19) This would [id number] total volume 988 kcals (average per day) 65gms protein 156 gms CHO Pharmacy to determine vitamins/minerals Addendum: 12/29/19 at [address] Amended: Links added.
[2019-12-29] MEDS: VANCOMYCIN IV 750 MG in IV DEXTROSE 5% 250 ML IV SCH (15:00)
[2019-12-29] MEDS ORDERED: ACETAMINOPHEN 650 MG SUPP.RECT RC PRN (17:15)
--- NOTE | 2019-12-29 19:00 | NUR ---
PATIENT HAS NO IV LINE, PICC LINE NURSE UNSUCCESSFUL OF INSERTING ON PLACE, MISHA MONROE AWARE, ALL IV MEDS ON HOLD AT THIS TIME. CONT TO MONITOR.
--- NOTE | 2019-12-29 19:35 | NUR ---
Patient remains alert, oriented x 3, not in any form of distress. Patient complained of left hip pain and given PRN pain medication as ordered with noted relief. Assisted with her needs. Afternoon due IV medications held due to PICC line not in correct position per x-ray, charge nurse, PICC line nurse aware. Patient kept clean and comfortable. Assisted with her needs promptly. Call light and frequently used items placed within reach. Endorsed accordingly to shift leader nurse.
[2019-12-29 20:00] VITALS: BP 139/76
--- NOTE | 2019-12-29 20:49 | NUR ---
NOTIFY DR. MAYEN PATIENT HAS NO IV LINE, NEEDS PAIN MEDS, WITH ORDER MORPHINE 2MG IM Q4 HRS NEEDED PAIN OF 8 TO 10.
[2019-12-29] MEDS: MORPHINE SULFATE 2 MG/1 ML DISP.SYRIN IM PRN (21:33)
[2019-12-29] MEDS: ENOXAPARIN SODIUM 30 MG/0.3 ML DISP.SYRIN SQ SCH (22:27)
--- NOTE | 2019-12-29 22:29 | NUR ---
iv medication not given, and iv hydration on hold, patient has no iv line. Dr Cheng aware.
[2019-12-30 00:35] VITALS: BP 138/87
--- NOTE | 2019-12-30 03:04 | NUR ---
PT ON CONT GLASS VENT WITH SHILEY [address] AND SECURED, WITH SAME CURRENT VENT SETTINGS, PT DOES ASSIST AT TIMES, GOOD COUGH ,EFFORT, SUCTIONED LIGHT PALE YELL TINGE SECRETIONS, PT IS AWAKE AT TIMES, AND UNDERSTANDS VERBAL COMMANDS, CHANGE HME, PPE USE, NO VENT CHANGES MADE AT THIS TIME ; PULSE OXY CONT AT BEDSIDE, SAT 99-100%. Ashely DURÁNP Addendum: 12/30/19 at 0307 by BRANDY SOTO RT Amended: Links added.
[2019-12-30] MEDS: MORPHINE SULFATE 2 MG/1 ML DISP.SYRIN IM PRN ×5 (03:40→20:14)
[2019-12-30 03:48] VITALS: BP 145/86
[2019-12-30] MEDS: CEFEPIME HCL 1 G in IV DEXTROSE 5% 50 ML IV SCH ×3 (06:00→21:02)
[2019-12-30] MEDS: METOCLOPRAMIDE HCL 10 MG/2 ML VIAL IV SCH ×2 (06:00)
[2019-12-30 06:07] LABS: HEMATOCRIT 35.6 % (31.2-41.9); HEMOGLOBIN 11.8 g/dL (10.9-14.3); LYMPHOCYTES # (AUTO) 0.2 K/uL (20.0-40.0); LYMPHOCYTES % (AUTO) 2.8 % (20.5-51.5); MEAN CORPUSCULAR HEMOGLOBIN 30.1 uug (24.7-32.8); MEAN CORPUSCULAR HGB CONC 33 g/dL (32.3-35.6); MONOCYTES # (AUTO) 0.6 K/uL (2.0-10.0); MONOCYTES % (AUTO) 7.3 % (0.0-11.0); NEUTROPHILS # (AUTO) 7.5 K/uL (1.8-8.9); NEUTROPHILS % (AUTO) 89.9 % (38.5-71.5); PLATELET COUNT (AUTO) 292 K/uL (179-408); RED BLOOD CELL COUNT(AUTO) 3.91 MIL/uL (3.63-4.92); WHITE BLOOD COUNT (AUTO) 8.3 K/uL (3.8-11.8)
[2019-12-30 06:23] LABS: BILIRUBIN,TOTAL 0.9 mg/dL (0.2-1.0); CREATININE 0.6 mg/dL (0.6-1.3); POTASSIUM 4.2 mmol/L (3.5-5.1); TOTAL PROTEIN, SERUM 5.1 g/dL (6.4-8.2)
--- NOTE | 2019-12-30 06:42 | NUR ---
PATIENT ALERT ORIENTED, NO SOB NO CHEST PAIN. PATIENT ON TELE MONITOR SINUS RHYTHM, SINUS TACHY. PATIENT CONT ON PAIN MANAGEMENT, PAIN ON LEFT HIM. PATIENT TRACH INTACT, SUCTION EVERY TWO HOURS AND NEEDED. PATIENT GT SITE STILL HAS REDNESS, TX DONE ORDERED, TX DONE ON SACRAL, MIDBACK WOUND. PATIENT LEFT HIP INCISION WITH RAJENDRA, CLEANSE AND COVER WITH DRY DRESSING. PATIENT HORTON CATH PATENT DRAINING WITH YELLOW COLOR URINE IN SMALL AMOUNT. PATIENT HAS NO WORKING IV LINE, AND FEEDING NO FOOD ON GT. PATIENT IV MEDICATIONS AND VIA GT MEDS ON HOLD AT THIS TIME. PATIENT FOR PICC PLACEMENT AGAIN TODAY, ENDORSED TO NEXT SHIFT TO OBTAIN WOUND CONSULT CONSENT. KEPT COMFORTABLE. CONT TO MONITOR.
[2019-12-30] MEDS: IPRATROPIUM BROMIDE 0.5 MG/2.5 ML NEBU NEB SCH ×4 (07:54→19:05)
[2019-12-30] MEDS: ALBUTEROL SULFATE 2.5 MG/3 ML NEBU NEB SCH ×4 (07:55→19:05)
[2019-12-30 08:39] LABS: ABG BASE EXCESS -2.8 mmol/L; ABG HCO3 21.2 mmol/L; ABG PCO2 34.5 mmHg (35.0-45.0); ABG PH 7.407 (7.350-7.450); ABG PO2 126.3 mmHg (75.0-100.0); ABG SITE RIGHT RADIAL; ABG TOTAL HEMOGLOBIN 12.8 G/dL (12.0-16.0); COHb 0.8 % (0.5-1.5); MetHb 0.4 % (0.0-1.5); O2Hb 97.8 % (94.0-97.0); VENT MODE VENT - A/C16; VT, ABG 400 mL
[2019-12-30] MEDS: methylPREDNISolone SOD SUCC 40 MG/ML VIAL IV SCH (09:00)
[2019-12-30] MEDS: FLUCONAZOLE 200 MG/NS 100ML IV 200 MG in PREMIXED 1 EACH IV SCH (09:00)
[2019-12-30] MEDS: PANTOPRAZOLE SODIUM 40 MG VIAL IV SCH (09:00)
--- NOTE | 2019-12-30 10:06 | NUR ---
Clinical Pharmacy Note: Vancomycin Pharmacy To Dose Subjective: To continue vancomycin in this 59 y/o female for sepsis, COPD exacerbation (possible VAP) Objective: weight 52kg height 142cm BUN/SCr 39/0.6 wbc 8.3 temp 97.6 Vanco trough level on 12/26 at 1830: 49.9 (not accurate- RN hung 1900 dose at 1700- level drawn during or after dose) Vanco trough level on 12/27 at 1630: 15.4 Assessment/Plan No IV line since 12/28 (no vanco dose given- MD aware). The plan is to place PICC line today. When IV line is usable, will re-start same regimen of vanco 750 mg IVPB q22h. Will monitor renal function & adjust the dose or repeat level when needed. Will follow
[2019-12-30 11:10] LABS: A/G RATIO 0.7 (0.7-1.7); ALBUMIN 1.8 g/dL (2.9-4.4); ALPHA-1-GLOBULIN 0.5 g/dL (0.0-0.4); ALPHA-2-GLOBULIN 0.9 g/dL (0.4-1.0); BETA GLOBULIN 0.6 g/dL (0.7-1.3); GAMMA GLOBULIN 0.6 g/dL (0.4-1.8); GLOBULIN, TOTAL 2.6 g/dL (2.2-3.9); M-SPIKE 0.1 g/dL (Not Observed)
[2019-12-30] MEDS: LIDOCAINE 5% PATCH TD SCH (11:35)
[2019-12-30] MEDS: CLOTRIMAZOLE 1% CREAM 30 GM TUBE TOP SCH ×2 (11:37→20:18)
[2019-12-30 11:47] LABS: MAGNESIUM 2.1 mg/dL (1.8-2.4); PHOSPHOROUS 3.1 mg/dL (2.5-4.9)
[2019-12-30] MEDS: VANCOMYCIN IV 750 MG in IV DEXTROSE 5% 250 ML IV SCH (13:00)
--- NOTE | 2019-12-30 17:00 | NUR ---
BARRON was here to see patient and do wound debridement, but unable to do so due to c/o pain.
--- NOTE | 2019-12-30 17:10 | NUR ---
PT REC'ING ON GLASS VENT VIA TRACH, TOLERATING SETTINGS WELL, NO DISTRESS NOTED THOUGHOUT SHIFT. INLINE NEB TX'S GIVEN PER MD ORDER AND SXN'D NEEDED. VENT ALARMS AUDIBLE, CHECKED AND RESET. WILL CONT TO MONITOR AND REPORT ANY CHANGES.
--- NOTE | 2019-12-30 19:05 | NUR ---
Pt received awake,alert and responsive, on continuous mechanical ventilation via Shiley 6 XLT-D trach. Pt is on Alexandre vent with ordered settings of A/C-16, VT-400, PEEP+5, FIO2-35% Pt tolerating vent settings well. Sxn'd and lavaged as needed. Minimal occluding volume technique used to assess cuff inflation. Nebulizer treatments given Q4W/A with Albuterol/Atrovent. Treatments tolerated well, with no adverse reactions noted. Pt is on continuous pulse-oximetry. Vent alarm parameters checked, on and audible. Vent plugged into red emergency outlet. Bag/valve/mask and backup trach at bedside. HME changed. PPE used.
--- NOTE | 2019-12-30 19:30 | NUR ---
RECEIVED PT AWAKE, ALERT AND ORIENTEDX1. PT IN NO ACUTE RESPIRATORY DISTRESS. IV INTACT. HORTON INTACT AND DWELLING WELL. WILL CONTINUE TO MONITOR. Addendum: 12/31/19 at 0048 by JANETTE CORONADO RN RECEIVED PT AWAKE, ALERT AND ORIENTEDX4. PT IN NO ACUTE RESPIRATORY DISTRESS. IV INTACT. HORTON INTACT AND DWELLING WELL. WILL CONTINUE TO MONITOR,.
--- NOTE | 2019-12-30 19:34 | NUR ---
Received patient in room, Pt. is AAO x 4, able to express self by writing on a board. NO acute distress or SOB noted. Vital signs stable for patient. patient on Trech and Vent. Patient GT in place with an order to hold feeding; GT site noted draining with dressing in place and intact. All IV medications on hold due to NO IV access. PICC line nurse was here but unable to do femoral line, CLINICAL PROFESSOR made aware. Patient with an order for Morphine sulfate IM injection for pain. Administered as ordered and effective. All other needs attended, patient is with 2 person max assist for care, wounds covered and kept dry. Skin kept clean and dry. F/C in place and intact and draining well. HOB elevated for comfort, needs attended, safety measures in place, call light left at bed side and will continue with care.
[2019-12-30 20:00] VITALS: BP 98/61
[2019-12-30] MEDS: ENOXAPARIN SODIUM 30 MG/0.3 ML DISP.SYRIN SQ SCH (20:18)
--- NOTE | 2019-12-30 21:00 | NUR ---
PT HAVE NO IV ACCESS. MD AWARE OF THE SITUATION. PICC LINE TO BE INSERTED JESÚS. PT IN NO ACUTE DISTRESS. WILL CONTINUE TO MONITOR.
[2019-12-30] MEDS: LORAZEPAM 2 MG/1 ML VIAL IV PRN (22:17)
[2019-12-30 22:43] LABS: *BLOOD, URINE 2+ (NEGATIVE); *COLOR,URINE YELLOW (YELLOW); *KETONES,URINE 2+ (NEGATIVE); *UROBILINOGEN,URINE 0.2 E.U./dl (NORMAL); LEUKOCYTE ESTERASE ,URINE NEGATIVE (NEGATIVE); NITRITE, URINE NEGATIVE (NEGATIVE); PH,URINE 6.5 (5.0-8.0); UGLUCOSE NEGATIVE (NEGATIVE)
[2019-12-30 22:55] LABS: *CREATININE,URINE 35.7 mg/dL (30-125); *URINE TOTAL PROTEIN RANDOM 208.8 mg/dL (<150/24HR)
[2019-12-30 23:02] LABS: *BILIRUBIN,URIN 1+ (NEGATIVE); *CLARITY,URINE HAZY (CLEAR)
[2019-12-30 23:09] LABS: BACTERIA,URINE FEW /HPF (NONE SEEN); MUCUS,URINE FEW /LPF (0-FEW); SQUAMOUS EPITHELIAL CELL,UR FEW /HPF (NONE SEEN); YEAST,URINE MODERATE /HPF (NONE SEEN)
[2019-12-30 23:11] VITALS: BP 145/86
[2019-12-31] MEDS: MORPHINE SULFATE 2 MG/1 ML DISP.SYRIN IM PRN ×4 (01:41→20:18)
[2019-12-31 04:16] VITALS: BP 114/70
[2019-12-31] MEDS: CEFEPIME HCL 1 G in IV DEXTROSE 5% 50 ML IV SCH ×3 (05:08→21:25)
--- NOTE | 2019-12-31 05:55 | NUR ---
PT SLEPT INTERMITTENTLY. PT IN NO ACUTE RESPIRATORY DISTRESS. IV INTACT. PRESCRIBED MEDICATION GIVEN AND PT TOLERATED IT WELL. PT TURNED AND REPOSITIONED. HORTON INTACT AND DWELLING WELL. DRESSING CHANGED. PT HAD NO IV ACCESS. PT GIVEN MORPHINE AT 1945H AND 0028H FOR PAIN. PT TOLERATED IT WELL. PT GIVEN ATIVAN FOR ANXIETY. PT TOLERATED IT WELL. DOCTOR AWARE OF THE SITUATION. . SAFETY AND COMFORT PROVIDED. ALL NEEDS ARE MET. WILL ENDORSE TO INCOMING NURSE FOR CONTINUITY OF CARE.
[2019-12-31 06:23] LABS: BASOPHILS % (AUTO) 0.3 % (0.0-2.0); CREATININE 0.6 mg/dL (0.6-1.3); EOSINOPHILS % (AUTO) 0.1 % (0.0-7.0); HEMATOCRIT 40.9 % (31.2-41.9); HEMOGLOBIN 13.3 g/dL (10.9-14.3); LYMPHOCYTES # (AUTO) 0.3 K/uL (20.0-40.0); LYMPHOCYTES % (AUTO) 3.3 % (20.5-51.5); MAGNESIUM 2.1 mg/dL (1.8-2.4); MEAN CORPUSCULAR HGB CONC 33 g/dL (32.3-35.6); MEAN CORPUSCULAR VOLUME 92.1 fL (75.5-95.3); MONOCYTES # (AUTO) 0.8 K/uL (2.0-10.0); MONOCYTES % (AUTO) 7.8 % (0.0-11.0); NEUTROPHILS # (AUTO) 8.8 K/uL (1.8-8.9); NEUTROPHILS % (AUTO) 88.5 % (38.5-71.5); PHOSPHOROUS 3.3 mg/dL (2.5-4.9); PLATELET COUNT (AUTO) 253 K/uL (179-408); POTASSIUM 4.2 mmol/L (3.5-5.1); RED BLOOD CELL COUNT(AUTO) 4.44 MIL/uL (3.63-4.92)
--- NOTE | 2019-12-31 06:31 | NUR ---
GAVE MORPHINE FOR PAIN. PT TOLERATED IT WELL. PT IN NO ACUTE RESPIRATORY DISTRESS. WILL ENDORSE TO INCOMING NURSE FOR CONTINUITY OF CARE.
--- NOTE | 2019-12-31 06:50 | NUR ---
PT CHANGED DRESSING. PT IN NO ACUTE DISTRESS. PT COMPLAINT OF PAIN .TOLD PT I JUST GAVE THE MEDICATION. WILL ENDORSE TO INCOMING NURSE.
[2019-12-31] MEDS: IPRATROPIUM BROMIDE 0.5 MG/2.5 ML NEBU NEB SCH ×4 (07:32→18:54)
[2019-12-31] MEDS: ALBUTEROL SULFATE 2.5 MG/3 ML NEBU NEB SCH ×4 (07:32→18:54)
--- NOTE | 2019-12-31 07:45 | NUR ---
Patient in bed, awake and verbally responsive. trach tube intact and midline, connected to ventilator with Settings AC 15 VT 400 PEEP +5 FiO2 35% ,saturating 98%. Afebrile. Kept clean and comfortable. awaiting for PICC line reinsertion. kept the call light within easy reach. Will continue to monitor.
[2019-12-31] MEDS: PANTOPRAZOLE SODIUM 40 MG VIAL IV SCH (08:45)
[2019-12-31] MEDS: methylPREDNISolone SOD SUCC 40 MG/ML VIAL IV SCH (08:45)
[2019-12-31] MEDS: LIDOCAINE 5% PATCH TD SCH (08:49)
[2019-12-31] MEDS: CLOTRIMAZOLE 1% CREAM 30 GM TUBE TOP SCH ×2 (08:49→21:26)
[2019-12-31] MEDS: LORAZEPAM 2 MG/1 ML VIAL IV PRN ×2 (09:06→23:39)
[2019-12-31] MEDS: FLUCONAZOLE 200 MG/NS 100ML IV 200 MG in PREMIXED 1 EACH IV SCH (09:34)
[2019-12-31] MEDS: ASPIRIN 300 MG RECTAL SUPP RC SCH (09:54)
[2019-12-31] MEDS: VANCOMYCIN IV 750 MG in IV DEXTROSE 5% 250 ML IV SCH (11:04)
[2019-12-31 11:30] VITALS: BP 106/72
[2019-12-31] MEDS ORDERED: IV D5W-0.45% NS 1000 ML BAG IV PRN (12:45)
[2019-12-31] MEDS ORDERED: IV 1/2NS 1000 ML 1,000 ML IV SCH (13:00)
--- NOTE | 2019-12-31 13:26 | NUR ---
Clinical Pharmacy Note: Vancomycin Pharmacy To Dose Subjective: To continue vancomycin in this 59 y/o female for sepsis, COPD exacerbation (possible VAP) Objective: weight 52kg height 142cm BUN/SCr 34/0.6 wbc 10 temp 98 Vanco trough level on 12/26 at 1830: 49.9 (not accurate- RN hung 1900 dose at 1700- level drawn during or after dose) Vanco trough level on 12/27 at 1630: 15.4 Assessment/Plan Peripheral IV line now reinstated per RN, restarted vancomycin regimen pt was previously therapeutic on of 750mg q22hr, first dose today at 1100. Will order trough before 4th scheduled dose (not ordered yet). Will continue to follow and adjust if condition or renal function were to change. Will monitor
[2019-12-31] MEDS: IV D5 1/2 NS 1000 ML 1,000 ML IV PRN (15:55)
[2019-12-31 16:00] VITALS: BP 122/76
--- NOTE | 2019-12-31 18:35 | NUR ---
Patient in bed, awake and verbally responsive. Trach tube intact and midline connected to ventilator. No signs of distress noted. No episode of SOB. Afebrile. Morphine 2mg IM x 1 given for Pain. All needs attended and met. IVF infusing well on Right Hand, still awaiting for PICC line reinsertion. Kept clean and comfortable. Will endorse to Oncoming Nurse.
--- NOTE | 2019-12-31 18:54 | NUR ---
Received pt awake, alert, on Alexandre vent with the following settings of AC-16, Vt-400, PEEP+5, FIO2-35%. Pt tachycardic. No s/s of respiratory distress noted. Airway care done, pt responded to physical stimuli. In-line HHN tx with 2.5mg Albuterol+0.5mg Atrovent given, pt tolerated well. HME changed. Cont. pulse ox on. Resus. bag at bedside. Vent and alarms checked and reset.
--- NOTE | 2019-12-31 20:00 | NUR ---
Received patient awake and alert in bed, patient has trach and on ventilator. No signs of acute distress noted. Complains of pain, will administer pain medication. No SOB. Vitals WNL. Right hand IV is intact and patent, running IVF no s/s of infection or infiltration noted. Godoy cath intact and draining well. Plan is for PICC line, current PICC on left upper arm is not working, waiting for another PICC line nurse to insert. Safety measures initiated. Bed is low and locked, call light within reach. Will continue to monitor.
[2019-12-31 20:24] VITALS: BP 112/73
[2019-12-31] MEDS: ENOXAPARIN SODIUM 30 MG/0.3 ML DISP.SYRIN SQ SCH (20:25)
[2020-01-01] MEDS: MORPHINE SULFATE 2 MG/1 ML DISP.SYRIN IM PRN ×3 (04:08→12:22)
[2020-01-01] MEDS: CEFEPIME HCL 1 G in IV DEXTROSE 5% 50 ML IV SCH ×3 (05:38→21:37)
[2020-01-01 05:52] LABS: BASOPHILS % (AUTO) 0.4 % (0.0-2.0); HEMATOCRIT 38.6 % (31.2-41.9); HEMOGLOBIN 12.7 g/dL (10.9-14.3); LYMPHOCYTES # (AUTO) 0.3 K/uL (20.0-40.0); LYMPHOCYTES % (AUTO) 2.8 % (20.5-51.5); MEAN CORPUSCULAR HEMOGLOBIN 30.2 uug (24.7-32.8); MEAN CORPUSCULAR HGB CONC 33 g/dL (32.3-35.6); MEAN CORPUSCULAR VOLUME 91.9 fL (75.5-95.3); MONOCYTES # (AUTO) 0.6 K/uL (2.0-10.0); MONOCYTES % (AUTO) 6.8 % (0.0-11.0); NEUTROPHILS # (AUTO) 8.5 K/uL (1.8-8.9); PLATELET COUNT (AUTO) 296 K/uL (179-408); WHITE BLOOD COUNT (AUTO) 9.4 K/uL (3.8-11.8)
[2020-01-01 05:57] LABS: CREATININE 0.5 mg/dL (0.6-1.3); POTASSIUM 3.9 mmol/L (3.5-5.1)
--- NOTE | 2020-01-01 06:47 | NUR ---
lab called for BUN level of 80, will endorse to next shift.
[2020-01-01] MEDS: ALBUTEROL SULFATE 2.5 MG/3 ML NEBU NEB SCH ×4 (08:10→20:22)
[2020-01-01] MEDS: IPRATROPIUM BROMIDE 0.5 MG/2.5 ML NEBU NEB SCH ×4 (08:10→20:22)
[2020-01-01 08:15] LABS: BAND % (MANUAL) 6 % (0-10); LYMPHOCYTES % (MANUAL) 5 % (20-40); METAMYELOCYTES % 3 % (0-1); MONOCYTES % (MANUAL) 11 % (2-10); MYELOCYTES % 1 % (0-0); NEUTROPHILS % (MANUAL) 74 % (42-75)
[2020-01-01] MEDS: IV D5 1/2 NS 1000 ML 1,000 ML IV PRN (08:59)
[2020-01-01] MEDS: PANTOPRAZOLE SODIUM 40 MG VIAL IV SCH (09:01)
[2020-01-01] MEDS: LIDOCAINE 5% PATCH TD SCH (09:01)
[2020-01-01] MEDS: methylPREDNISolone SOD SUCC 40 MG/ML VIAL IV SCH (09:01)
[2020-01-01] MEDS: VANCOMYCIN IV 750 MG in IV DEXTROSE 5% 250 ML IV SCH (09:04)
[2020-01-01 09:09] VITALS: BP 120/78
[2020-01-01] MEDS: CLOTRIMAZOLE 1% CREAM 30 GM TUBE TOP SCH ×2 (09:09→21:34)
[2020-01-01] MEDS: FLUCONAZOLE 200 MG/NS 100ML IV 200 MG in PREMIXED 1 EACH IV SCH (10:19)
[2020-01-01 12:22] VITALS: BP 116/80
--- NOTE | 2020-01-01 13:33 | NUR ---
Clinical Pharmacy Note: Vancomycin Pharmacy To Dose Subjective: To continue (now restarted as new peripheral line is in) vancomycin in this 59 y/o female for sepsis, COPD exacerbation (possible VAP) Objective: weight 52kg height 142cm BUN/SCr 27/0.5 wbc 9.4 temp 98.1 Vanco trough level on 12/26 at 1830: 49.9 (not accurate- RN hung 1900 dose at 1700- level drawn during or after dose) Vanco trough level on 12/27 at 1630: 15.4 Assessment/Plan As renal function is stable, will continue restarted vancomycin regimen of 750mg q22hr, 3rd dose tomorrow at 0700. Will order trough before 4th scheduled dose (not ordered yet). Will continue to follow and adjust if condition or renal function were to change. Will monitor
--- NOTE | 2020-01-01 15:34 | NUR ---
re: PICC/MIDLINE PICC line was attempted in RUE but after insertion, chest x-ray showed that PICC was not in correct position therefore it was removed and a midline was inserted into RUE without difficulty. OK to use RUE midline at this time. Pt had a malpositioned PICC in LUE that was placed by another PICC RN a few days ago. Per pt's nurse, other PICC RN was unable to place PICC in correct position in LUE therefore no new attempt was made in that location. Malpositioned PICC in LUE was removed without difficulty measuring at 41 cm with tip intact.
[2020-01-01] MEDS ORDERED: DEXTROSE 50% 50 ML DISP.SYRIN IV PRN (16:45)
--- NOTE | 2020-01-01 16:46 | NUR ---
CLINICAL PHARMACY NOTE: TPN PER PHARMACY Subjective: This is a 59 y/o female with respiratory failure, s/p trach on vent, s/p PEG and h/o asthma, dysphagia, left hip fracture. 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 Per Warp Changer assessment: "No nutrition support since admission, patient is malnourished. Plan to remove G-tube, start TPN/lipids, possible GJ-tube placement per GI note" Pt had been pending PICC line however encountered difficulties and failed per RN report. Today, after again failed attempt, midline was placed instead. Will start TPN per Rx to dose via peripheral line Per Warp Changer recommendation: TPN to start via midline infusion. Recommend macronutrients: D10, 4.25% AA @65ml/hour x 24 hour infusion. 20% lipids 250ml x 3/week. This will provide 988 kcals, 65gms protein, 156gms CHO. This is 92-100% her est nutritional needs. Pharmacy to advise re: micronutrients. LABS (01/01/20): Alb 1.9, Mg 2.1, Phos 3.3, Na 134, K 3.9, Cl 101, CO2 27, BUN 27, BG 167, SCr 0.5, Ca 8.9 (Corrected Ca 10.2) Assessment/Plan 1. Will start TPN Bag #1 to include: NaCl 80meq, K Acetate 20meq, MVI 10ml, Trace Elements 1ml. RN endorsed to initiate at 20ml/hr and titrate by 10ml/hr every hour until goal rate of 65ml/hr as tolerated 2. Will start Lipids 20% 250ml every other day per dietary recommendation, first bag will be due tomorrow at 1400 3. Rx clarified with , IVF D51/2NS d/c'd once TPN started 4. Per Rx rec, added accucheck and mild SSI q6h for continued BG monitoring 5. Next labs ordered for am, will monitor for signs of refeeding syndrome and adjust as needed
[2020-01-01 16:52] VITALS: BP 112/71
[2020-01-01] MEDS: BLOOD SUGAR DIAGNOSTIC 1 EACH STRIP VI SCH (17:08)
[2020-01-01] MEDS: INSULIN REGULAR, HUMAN 300 UNIT/3 ML VIAL SQ PRN (17:14)
[2020-01-01] MEDS ORDERED: POTASSIUM ACETATE IV PRN ×6 (18:00)
[2020-01-01] MEDS ORDERED: SODIUM CHLORIDE IV PRN ×6 (18:00)
[2020-01-01] MEDS ORDERED: [UNRECOGNIZED DRUG - OTHER] IV PRN ×6 (18:00)
--- NOTE | 2020-01-01 18:48 | NUR ---
Patient stable, on mechanical ventilator. Tracheostomy in place. No distress noted. Pain managed with PRN morphine. NPO. Godoy catheter in place, care done. G-tube in place leaking greenish output, care done surrounding insertion site, gauze in place. Left hip navi in place s/p ORIF, dressing changed today. PICC line removed and attempted replacement today per PICC nurse, unsuccessful. Placed Midline per Thomas Farmer FASHION JOURNALIST. Peripheral access in place for antibiotic use. Continues on antibiotics IV. TPN started through midline at 20ml/hr, goal rate is 65. FASHION JOURNALIST Thomas Farmer ok'd use of PN through midline, I called pharmacist Amisha to question use of PN through midline and she state this is a low enough dose to infuse through midline. Sofia Director updated on plan and new orders for TPN via midline. On accuchecks q6h, sliding scale. Patient able to communicate via whiteboard in writing and moves head for yes/no. Wound care done per orders, on air mattress for skin precautions. Covid swab collected and sent to lab. End of shift chart check done will endorse care to oncoming shift.
--- NOTE | 2020-01-01 19:30 | NUR ---
Patient received in bed. Patient awake and alert. Patient writes on a board as a mode of communication. Patient has no s/s of acute distress. Patient on trach and ventilator. Patient on garcia, intact. IV on right hand intact and patent. Patient has IV midline for prescribed TPN which currently running at 20. Vitals are stable. Safety measures in place. Bed low and locked position, call lights within reach. Will continue with the plan of care.
[2020-01-01 20:08] VITALS: BP 112/68
[2020-01-01 20:28] VITALS: BP 112/68
[2020-01-01] MEDS: ENOXAPARIN SODIUM 30 MG/0.3 ML DISP.SYRIN SQ SCH (21:39)
[2020-01-02 00:08] VITALS: BP 122/74
[2020-01-02] MEDS: BLOOD SUGAR DIAGNOSTIC 1 EACH STRIP VI SCH ×4 (00:16→17:05)
[2020-01-02] MEDS: INSULIN REGULAR, HUMAN 300 UNIT/3 ML VIAL SQ PRN ×4 (00:24→17:49)
[2020-01-02] MEDS: MORPHINE SULFATE 2 MG/1 ML DISP.SYRIN IM PRN ×5 (04:25→20:46)
[2020-01-02 04:32] VITALS: BP 115/74
[2020-01-02 06:03] LABS: BASOPHILS % (AUTO) 0.1 % (0.0-2.0); EOSINOPHILS % (AUTO) 0.1 % (0.0-7.0); HEMATOCRIT 39.2 % (31.2-41.9); HEMOGLOBIN 12.7 g/dL (10.9-14.3); LYMPHOCYTES # (AUTO) 0.2 K/uL (20.0-40.0); LYMPHOCYTES % (AUTO) 2.5 % (20.5-51.5); MEAN CORPUSCULAR HEMOGLOBIN 29.7 uug (24.7-32.8); MEAN CORPUSCULAR HGB CONC 32 g/dL (32.3-35.6); MEAN CORPUSCULAR VOLUME 91.8 fL (75.5-95.3); MONOCYTES # (AUTO) 0.5 K/uL (2.0-10.0); MONOCYTES % (AUTO) 7.4 % (0.0-11.0); NEUTROPHILS # (AUTO) 6.1 K/uL (1.8-8.9); NEUTROPHILS % (AUTO) 89.9 % (38.5-71.5); PLATELET COUNT (AUTO) 298 K/uL (179-408); RED BLOOD CELL COUNT(AUTO) 4.27 MIL/uL (3.63-4.92); WHITE BLOOD COUNT (AUTO) 6.8 K/uL (3.8-11.8)
[2020-01-02 06:16] LABS: CREATININE 0.6 mg/dL (0.6-1.3); PHOSPHOROUS 1.2 mg/dL (2.5-4.9)
[2020-01-02 06:23] LABS: POTASSIUM 3.7 mmol/L (3.5-5.1)
[2020-01-02] MEDS: CEFEPIME HCL 1 G in IV DEXTROSE 5% 50 ML IV SCH ×3 (06:24→21:59)
[2020-01-02] MEDS: VANCOMYCIN IV 750 MG in IV DEXTROSE 5% 250 ML IV SCH (07:20)
--- NOTE | 2020-01-02 07:30 | NUR ---
Patient resting in bed, awake and alert. Patient denies any sob or respiratory distress. Patient denies any pain. Patient given prescribed medications as well as PRN pain meds. Needs attended. Incontinence care provided. Vitals are stable. Safety measures in place. Will endorse to the oncoming nurse accordingly
[2020-01-02] MEDS: ALBUTEROL SULFATE 2.5 MG/3 ML NEBU NEB SCH ×4 (07:35→21:10)
[2020-01-02] MEDS: IPRATROPIUM BROMIDE 0.5 MG/2.5 ML NEBU NEB SCH ×4 (07:35→21:10)
[2020-01-02] MEDS ORDERED: NEUTRA PHOS PACKET PO ONE (08:30)
[2020-01-02] MEDS ORDERED: SODIUM PHOSPHATE MM 15 MMOL in IV NORMAL SALINE 250 ML IV ONE (09:00)
--- NOTE | 2020-01-02 09:00 | NUR ---
IN BED AWAKE ALERT NON VERBAL DUE TO BEING ON TRACH AND VENTED BUT USES PEN AND PAPER AND MOVING LIPS TO MAKE NEEDS KNOWN NO RESPIRATORY DISTRESS AT THIS TIME REMAIN ON TPN ORDERED WITH BLOOD SUGAR CHECKS ORDERED.NO S/S OF HYPO/HYPERGLYCEMIC REACTIONS AT THIS TIME MAX ASSIST FOR ALL ADL.GT SITE WITH LARGE AMOUNTS OF FLUIDS CHANGED NEEDED MADE COMFORTABLE WILL CONTINUE TO OBSERVE.
[2020-01-02] MEDS: methylPREDNISolone SOD SUCC 40 MG/ML VIAL IV SCH (09:23)
[2020-01-02] MEDS: PANTOPRAZOLE SODIUM 40 MG VIAL IV SCH (09:23)
[2020-01-02] MEDS: LIDOCAINE 5% PATCH TD SCH (09:24)
[2020-01-02] MEDS: FLUCONAZOLE 200 MG/NS 100ML IV 200 MG in PREMIXED 1 EACH IV SCH (09:34)
[2020-01-02] MEDS: CLOTRIMAZOLE 1% CREAM 30 GM TUBE TOP SCH ×2 (09:39→21:39)
--- NOTE | 2020-01-02 10:51 | NUR ---
CLINICAL PHARMACY NOTE: TPN PER PHARMACY Subjective: This is a 59 y/o female with respiratory failure, s/p trach on vent, s/p PEG and h/o asthma, dysphagia, left hip fracture. 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 Per Anvilsmith assessment: "No nutrition support since admission, patient is malnourished. Plan to remove G-tube, start TPN/lipids, possible GJ-tube placement per GI note" Pt had been pending PICC line however encountered difficulties and failed per RN report. Yesterday, after again failed attempt, midline was placed instead. Will continue TPN per Rx to dose via peripheral line Per Anvilsmith recommendation: TPN to continue via midline infusion. Recommend macronutrients: D10, 4.25% AA @65ml/hour x 24 hour infusion. 20% lipids 250ml x 3/week. This will provide 988 kcals, 65gms protein, 156gms CHO. This is 92-100% her est nutritional needs. Pharmacy to advise re: micronutrients. LABS (01/01/20): Alb 1.9, Mg 2.0, Phos 1.2, Na 135, K 3.7, Cl 102, CO2 30, BUN 23, BG 184, SCr 0.6, Ca 8.7 (Corrected Ca 10.38) Assessment/Plan 1. Will continue with TPN Bag #2(due around 1130 today) to include: NaCl 100meq, KCL 20meq, Sodium Phos 3mmol, Regular insulin 5 units TPN bag#3 to be started tomorrow at 0230 and will include same electrolytes as TPN bag #2 plus MVI 10ml and Trace elements 1ml. TPN rate to continue at 65ml/hr(goal rate). 2. Will start Lipids 20% 250ml every other day per dietary recommendation, first bag will be due today at 1400 3. MD replaced Sodium phos 15mmol x1 today for hyperphosphatemia. 4. Continue accucheck and mild SSI q6h for continued BG monitoring. Per protocol total 11 units regular insulin was given from yesterday to this am. Will add regular insulin 5 units per bag and will gradually increase to 10 units per bag or more as needed.(patient is not diabetic) 5. Next labs ordered for am, will monitor for signs of refeeding syndrome and adjust as needed
[2020-01-02] MEDS ORDERED: POTASSIUM CHLORIDE IV PRN ×6 (11:30)
[2020-01-02] MEDS ORDERED: SODIUM CHLORIDE IV PRN ×6 (11:30)
[2020-01-02] MEDS ORDERED: [UNRECOGNIZED DRUG - OTHER] IV PRN ×6 (11:30)
[2020-01-02 11:33] VITALS: BP 132/74
--- NOTE | 2020-01-02 11:57 | NUR ---
Clinical Pharmacy Note: Vancomycin Pharmacy To Dose Subjective: To continue (now restarted as new peripheral line is in) vancomycin in this 59 y/o female for sepsis, COPD exacerbation (possible VAP) Objective: weight 52kg height 142cm BUN/SCr 23/0.6 wbc 6.8 temp 98.1 Vanco trough level on 12/26 at 1830: 49.9 (not accurate- RN hung 1900 dose at 1700- level drawn during or after dose) Vanco trough level on 12/27 at 1630: 15.4 Assessment/Plan As renal function is stable, will continue vancomycin regimen of 750mg q22hr, 3rd dose given today at 0700. Will order trough before 4th scheduled dose (ordered for tomorrow at 0430)for expected trough around 16. Will continue to follow and adjust if condition or renal function were to change. Will monitor
[2020-01-02] MEDS ORDERED: IV FAT EMULSIONS 20% 250 ML IV ONE (14:00)
--- NOTE | 2020-01-02 14:38 | NUR ---
PATIENT STARTED ON LIPIDS ORDERED AT 10.5ML/HR AND IS CURRENTLY RECEIVING TPN WITH NO ADVERSE EFFECTS
[2020-01-02 15:30] VITALS: BP 131/76
--- NOTE | 2020-01-02 18:00 | NUR ---
GT SITE VERY RAW RED AND CONTINUES TO OOZ DARK YELLOWISH FLUID CLEANSED LEONEL GAUZE APPLIED PICC LINE RN HERE TO CHECK ON EXISTING LINE PATIENT IS ON LIPIDS AND TPN AND WILL NEED PICC LINE FOR ALF THERAPY GT CANNOT BE USED.
[2020-01-02 20:48] VITALS: BP 129/76
[2020-01-02] MEDS: ENOXAPARIN SODIUM 30 MG/0.3 ML DISP.SYRIN SQ SCH (21:19)
[2020-01-02] MEDS: LORAZEPAM 2 MG/1 ML VIAL IV PRN (22:39)
[2020-01-03 00:20] VITALS: BP 126/77
[2020-01-03] MEDS: BLOOD SUGAR DIAGNOSTIC 1 EACH STRIP VI SCH ×5 (00:55→17:53)
[2020-01-03] MEDS: MORPHINE SULFATE 2 MG/1 ML DISP.SYRIN IM PRN ×5 (01:04→18:36)
[2020-01-03] MEDS ORDERED: POTASSIUM CHLORIDE IV PRN ×8 (02:30)
[2020-01-03] MEDS ORDERED: SODIUM CHLORIDE IV PRN ×17 (02:30→18:30)
[2020-01-03] MEDS ORDERED: [UNRECOGNIZED DRUG - OTHER] IV PRN ×8 (02:30)
[2020-01-03 04:46] LABS: EOSINOPHILS % (AUTO) 0.1 % (0.0-7.0); HEMATOCRIT 36.5 % (31.2-41.9); HEMOGLOBIN 12.2 g/dL (10.9-14.3); LYMPHOCYTES # (AUTO) 0.6 K/uL (20.0-40.0); LYMPHOCYTES % (AUTO) 6.9 % (20.5-51.5); MEAN CORPUSCULAR HEMOGLOBIN 30.4 uug (24.7-32.8); MEAN CORPUSCULAR HGB CONC 33 g/dL (32.3-35.6); MEAN CORPUSCULAR VOLUME 91.5 fL (75.5-95.3); MONOCYTES # (AUTO) 0.6 K/uL (2.0-10.0); MONOCYTES % (AUTO) 6.7 % (0.0-11.0); NEUTROPHILS % (AUTO) 86.3 % (38.5-71.5); PLATELET COUNT (AUTO) 308 K/uL (179-408); RED BLOOD CELL COUNT(AUTO) 3.99 MIL/uL (3.63-4.92); WHITE BLOOD COUNT (AUTO) 9.3 K/uL (3.8-11.8)
[2020-01-03 04:53] VITALS: BP 130/75
[2020-01-03] MEDS: CEFEPIME HCL 1 G in IV DEXTROSE 5% 50 ML IV SCH ×3 (05:03→22:25)
[2020-01-03 05:55] LABS: CARBON DIOXIDE 28 mmol/L (21-32); CHLORIDE 104 mmol/L (98-107); CREATININE 0.4 mg/dL (0.6-1.3); GLUCOSE 127 mg/dL (74-106); MAGNESIUM 1.5 mg/dL (1.8-2.4); PHOSPHOROUS 1.4 mg/dL (2.5-4.9); POTASSIUM 3.5 mmol/L (3.5-5.1); UREA NITROGEN, BLOOD 26 mg/dL (7-18)
[2020-01-03] MEDS: VANCOMYCIN IV 750 MG in IV DEXTROSE 5% 250 ML IV SCH (05:58)
--- NOTE | 2020-01-03 08:00 | NUR ---
Pt non verbal but able to communicate her needs. Pt able to write on her communication board. Pt able to let nursing know when she is in pain. Pt. refusing to turned. Explained to pt purpose to frequent turning to helo with her skin integrity but pt continues to refused to be turned. Bargained with pt that she will be turned 30 mins after getting her morphine. Pt agreeble with plan of care. Noted Double lumen on left brachial picc line intact and flushing well. LE's +2 edema noted and elevated. legs. TPN lipids infusing as ordered. Call light is within reach.
[2020-01-03] MEDS: methylPREDNISolone SOD SUCC 40 MG/ML VIAL IV SCH (08:34)
[2020-01-03] MEDS: PANTOPRAZOLE SODIUM 40 MG VIAL IV SCH (08:34)
[2020-01-03] MEDS: LIDOCAINE 5% PATCH TD SCH (08:34)
[2020-01-03] MEDS: ASPIRIN 300 MG RECTAL SUPP RC SCH (08:34)
[2020-01-03] MEDS: ALBUTEROL SULFATE 2.5 MG/3 ML NEBU NEB SCH ×4 (08:37→20:38)
[2020-01-03] MEDS: IPRATROPIUM BROMIDE 0.5 MG/2.5 ML NEBU NEB SCH ×4 (08:37→20:38)
[2020-01-03] MEDS: FLUCONAZOLE 200 MG/NS 100ML IV 200 MG in PREMIXED 1 EACH IV SCH (08:39)
[2020-01-03] MEDS: CLOTRIMAZOLE 1% CREAM 30 GM TUBE TOP SCH ×2 (08:53→22:25)
[2020-01-03] MEDS: ONDANSETRON 4 MG/2 ML VIAL IV PRN (08:53)
[2020-01-03] MEDS ORDERED: SODIUM PHOSPHATE MM 15 MMOL in IV NORMAL SALINE 250 ML IV ONE (11:00)
--- NOTE | 2020-01-03 12:07 | NUR ---
Clinical Pharmacy Note: Vancomycin Pharmacy To Dose Subjective: To continue (now restarted as new peripheral line is in) vancomycin in this 59 y/o female for sepsis, COPD exacerbation (possible VAP) Objective: weight 52kg height 142cm BUN/SCr 26/0.4 wbc 9.3 temp 98.5 Vanco trough level on 12/26 at 1830: 49.9 (not accurate- RN hung 1900 dose at 1700- level drawn during or after dose) Vanco trough level on 12/27 at 1630: 15.4 Vanco trough level on 01/02 @ 0430: 11.4 Assessment/Plan Based on today's trough, will adjust vanco regimen to 750mg q18hr for new estimated trough of 15.6. Second dose scheduled for 01/03 @0000. Will order trough before 4th scheduled dose (not ordered yet). Will follow
[2020-01-03 12:10] VITALS: BP 115/69
--- NOTE | 2020-01-03 12:14 | NUR ---
CLINICAL PHARMACY NOTE: TPN PER PHARMACY Subjective: This is a 59 y/o female with respiratory failure, s/p trach on vent, s/p PEG and h/o asthma, dysphagia, left hip fracture. 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 Per Environmental Services Project Manager assessment: "No nutrition support since admission, patient is malnourished. Plan to remove G-tube, start TPN/lipids, possible GJ-tube placement per GI note" Pt had been pending PICC line however encountered difficulties and failed per RN report. Yesterday, after again failed attempt, midline was placed instead. Will continue TPN per Rx to dose via peripheral line Per Environmental Services Project Manager recommendation: TPN to continue via midline infusion. Recommend macronutrients: D10, 4.25% AA @65ml/hour x 24 hour infusion. 20% lipids 250ml x 3/week. This will provide 988 kcals, 65gms protein, 156gms CHO. This is 92-100% her est nutritional needs. Pharmacy to advise re: micronutrients. LABS (01/03/20): Alb 1.9 (01/01), Mg 1.5, Phos 1.4, Na 136, K 3.5, Cl 104, CO2 28, BUN 26, BG 127, SCr 0.4, Ca 8.0 (Corrected Ca 9.3) Assessment/Plan 1. Will continue with TPN Bag #4(due 1829 today, previous bag expiration) to include: NaCl 80meq, Na Acetate 20meq, KCL 30meq, MgSulfate 2gm, Ca gluconate 0.5gm, K phos 9mmol, and Regular insulin 5 units 2. On Lipids 20% 250ml every other day per dietary recommendation, last bag yesterday at 1400. None for today 3. Replaced Sodium phos 15mmol x1 again today for hyperphosphatemia as well 4. Continue accucheck and mild SSI q6h for continued BG monitoring. 5 units of insulin were added to bags 2 and 3, however will not increase for now as BG has fluctuated and now is down, last POC 108. Will continue to trend and may consider removal from bag if remains fairly controlled on SSI. 5. Next labs ordered for am, will monitor for signs of refeeding syndrome and adjust as needed
--- NOTE | 2020-01-03 15:00 | NUR ---
Pt refusing to be turned. Explained purpose of frequent turn to help with her skin integrity. Pt continues to refuse.
[2020-01-03 15:59] VITALS: BP 131/76
--- NOTE | 2020-01-03 17:09 | NUR ---
Spoke with Chu from [facility] asking for update on patient.
[2020-01-03] MEDS: INSULIN REGULAR, HUMAN 300 UNIT/3 ML VIAL SQ PRN (17:55)
[2020-01-03] MEDS ORDERED: [UNRECOGNIZED DRUG - OTHER] IV PRN ×9 (18:30)
[2020-01-03] MEDS ORDERED: SODIUM ACETATE IV PRN ×9 (18:30)
--- NOTE | 2020-01-03 18:45 | NUR ---
Wound care done as ordered. Noted greenish liquid fluid draining out on g tube site. G tube site is red and raw applied z guard as ordered. Changed dressing on left hip noted no redness on left hip. Nathaly area redness noted. Sacral wound 3.5x3.5x.1cm. noted bone present on site with sloughing noted. Mid back wound 1.5x1.5x0.5cm. with sloughing noted as well. skin tare on right hand area noted x1 and on right elbow area skin tare applied xeroform. Pt is in no acute distress. Gave morphine after wound tx for pain management and pt c/o pain level of 9/10. resp 18.
[2020-01-03] MEDS: ENOXAPARIN SODIUM 30 MG/0.3 ML DISP.SYRIN SQ SCH (22:00)
[2020-01-04] MEDS: BLOOD SUGAR DIAGNOSTIC 1 EACH STRIP VI SCH ×4 (00:45→18:15)
[2020-01-04] MEDS: VANCOMYCIN IV 750 MG in IV DEXTROSE 5% 250 ML IV SCH ×2 (01:33→18:00)
[2020-01-04 01:57] VITALS: BP 123/74
[2020-01-04] MEDS: MORPHINE SULFATE 2 MG/1 ML DISP.SYRIN IM PRN (02:54)
[2020-01-04 05:33] VITALS: BP 141/81
[2020-01-04] MEDS: CEFEPIME HCL 1 G in IV DEXTROSE 5% 50 ML IV SCH ×2 (05:59→13:25)
[2020-01-04 08:00] VITALS: BP 124/78
[2020-01-04] MEDS: PANTOPRAZOLE SODIUM 40 MG VIAL IV SCH (08:32)
[2020-01-04] MEDS: LIDOCAINE 5% PATCH TD SCH (08:32)
[2020-01-04] MEDS: CLOTRIMAZOLE 1% CREAM 30 GM TUBE TOP SCH (08:33)
[2020-01-04] MEDS ORDERED: methylPREDNISolone SOD SUCC 40 MG/ML VIAL IV SCH (09:00)
[2020-01-04] MEDS: IPRATROPIUM BROMIDE 0.5 MG/2.5 ML NEBU NEB SCH ×3 (09:01→15:26)
[2020-01-04] MEDS: ALBUTEROL SULFATE 2.5 MG/3 ML NEBU NEB SCH ×3 (09:01→15:26)
[2020-01-04 11:02] LABS: EOSINOPHILS % (AUTO) 0.1 % (0.0-7.0); HEMATOCRIT 37.1 % (31.2-41.9); LYMPHOCYTES # (AUTO) 0.6 K/uL (20.0-40.0); LYMPHOCYTES % (AUTO) 2.4 % (20.5-51.5); MEAN CORPUSCULAR HEMOGLOBIN 29.4 uug (24.7-32.8); MEAN CORPUSCULAR HGB CONC 32 g/dL (32.3-35.6); MEAN CORPUSCULAR VOLUME 91.2 fL (75.5-95.3); MONOCYTES # (AUTO) 0.7 K/uL (2.0-10.0); MONOCYTES % (AUTO) 2.9 % (0.0-11.0); NEUTROPHILS # (AUTO) 22.1 K/uL (1.8-8.9); NEUTROPHILS % (AUTO) 94.6 % (38.5-71.5); PLATELET COUNT (AUTO) 280 K/uL (179-408); RED BLOOD CELL COUNT(AUTO) 4.07 MIL/uL (3.63-4.92); WHITE BLOOD COUNT (AUTO) 23.3 K/uL (3.8-11.8)
[2020-01-04] MEDS: MORPHINE SULFATE 2 MG/1 ML DISP.SYRIN IV PRN ×2 (11:11→15:19)
--- NOTE | 2020-01-04 11:25 | NUR ---
GREGORY received a voicemail message from [facility] social media assistant Jes [phone] in response to the APS referral this GREGORY made on 12/28/19. GREGORY returned Jes's phone call today at 11:17am, but was not able to connect with Jes. GREGORY left Eriberto voicemail message, asking Jes to call this GREGORY back.
[2020-01-04 11:32] LABS: ALANINE AMINOTRANSFERASE 20 U/L (14-59); ALKALINE PHOSPHATASE 93 U/L (50-136); ASPARTATE AMINOTRANSFERASE 20 U/L (15-37); BILIRUBIN,TOTAL 0.5 mg/dL (0.2-1.0); CARBON DIOXIDE 27 mmol/L (21-32); CHLORIDE 107 mmol/L (98-107); CREATININE 0.4 mg/dL (0.6-1.3); GLUCOSE 117 mg/dL (74-106); MAGNESIUM 2.2 mg/dL (1.8-2.4); PHOSPHOROUS 1.5 mg/dL (2.5-4.9); TOTAL PROTEIN, SERUM 4.6 g/dL (6.4-8.2); TRIGLYCERIDES 98 MG/DL (30-150); UREA NITROGEN, BLOOD 29 mg/dL (7-18)
--- NOTE | 2020-01-04 12:00 | NUR ---
Telephone report given to Brooke Miles, patient will be dcd to [facility]. room 47B. Nurse informed that patient will be going with PICC line 2L LUE patent and inserted 01/02/2020 as reported by Luis. G-tube clamped with NPO orders active. Godoy catheter to gravity. Wounds to sacrum and mid-back pictures taken 01/03/2020 as pt. was expected to leave this date. Arrangement for transportation to be made by [employer]. Awaiting call with JASE.
[2020-01-04 12:04] VITALS: BP 132/78
[2020-01-04] MEDS ORDERED: Morphine Sulfate Inj IV (12:11)
[2020-01-04] MEDS ORDERED: METH40VI37 IVP (12:11)
[2020-01-04] MEDS ORDERED: METO5VIA IVP (12:11)
[2020-01-04] MEDS ORDERED: ALBU2.5V7 NEB ×2 (12:11)
[2020-01-04] MEDS ORDERED: ASPI300S RC (12:11)
[2020-01-04] MEDS ORDERED: ACET650S24 RC (12:11)
[2020-01-04] MEDS ORDERED: Blood Sugar Diagnostic VI (12:11)
[2020-01-04] MEDS ORDERED: INSU100V28 SQ (12:11)
[2020-01-04] MEDS ORDERED: METH40VI37 IV (12:11)
[2020-01-04] MEDS ORDERED: LORA2VIA6 IV (12:11)
[2020-01-04] MEDS ORDERED: LIDO30AD10 TD (12:11)
[2020-01-04] MEDS ORDERED: ENOX30DI SQ (12:11)
--- NOTE | 2020-01-04 12:26 | NUR ---
Clinical Pharmacy Note: Vancomycin Pharmacy To Dose Subjective: To continue (now restarted as new peripheral line is in) vancomycin in this 59 y/o female for sepsis, COPD exacerbation (possible VAP) Objective: weight 52kg height 142cm BUN/SCr 29/0.4 wbc 23.3 temp 97.9 Vanco trough level on 12/26 at 1830: 49.9 (not accurate- RN hung 1900 dose at 1700- level drawn during or after dose) Vanco trough level on 12/27 at 1630: 15.4 Vanco trough level on 01/02 @ 0430: 11.4 Assessment/Plan Will continue same dose of vanco regimen to 750mg IVPB q18hr for today. 3rd dose today at 1800. Plan to order trough before 4th scheduled dose (ordered for 01/04 at 1130). Will follow
[2020-01-04] MEDS ORDERED: IV 10% DEXTROSE 1,000 ML IV PRN (14:00)
[2020-01-04] MEDS ORDERED: IV FAT EMULSIONS 20% 250 ML IV ONE (15:00)
[2020-01-04] MEDS ORDERED: SODIUM CHLORIDE IV PRN ×10 (15:00)
[2020-01-04] MEDS ORDERED: [UNRECOGNIZED DRUG - OTHER] IV PRN ×10 (15:00)
[2020-01-04] MEDS ORDERED: SODIUM ACETATE IV PRN ×10 (15:00)
[2020-01-04 15:57] VITALS: BP 136/85
[2020-01-04] MEDS: LORAZEPAM 2 MG/1 ML VIAL IV PRN (16:26)
[2020-01-04] MEDS ORDERED: SODIUM PHOSPHATE MM 7.5 MMOL in IV NORMAL SALINE 100 ML IV ONE (16:30)
--- NOTE | 2020-01-04 18:07 | NUR ---
Medical transport in the unit to transfer pt. to [facility]. Full bedside report given to RT Matthew and [facility] transfer staff. patient left with picc line [id number] patent and HL at this time patient not completing infusion of Kphos. Godoy to gravity. G-t Clamped and transfer staff informed of leaking. LUE with surgical navi in place surgical incision well approximated. dressing change pp. tracheostomy patent and to ventilator with A/c16, tv 400 35% FIO, and Peep +5. patient with no sob or any distress saturation 97-100% Addendum: 01/04/20 at 1813 by ELOISA VARGHESE RN DCD package given to transfer staff and discussed with patient.
== END 2020-01-04 18:20 | DRG 207 ==
LOC: CCU 21:38 → TELE3 12-26 12:49
PROVIDERS: ADMIT Registered Nurse; ATTEND Nurse Practitioner Acute Care
PROC: 5A1955Z Respiratory Ventilation, Greater than 96 Consecutive Hours (ICD-10-PCS; principal; 2019-12-24)
PROC: 05HY33Z Insertion of Infusion Device into Upper Vein, Percutaneous Approach (ICD-10-PCS; 2019-12-26)
PROC: 0DP6XUZ Removal of Feeding Device from Stomach, External Approach (ICD-10-PCS; 2019-12-28)
PROC: 02HV33Z Insertion of Infusion Device into Superior Vena Cava, Percutaneous Approach (ICD-10-PCS; 2019-12-29)
PROC: B548ZZA Ultrasonography of Superior Vena Cava, Guidance (ICD-10-PCS; 2019-12-29)
DX: J95.851 Ventilator associated pneumonia (principal); J96.21 Acute and chronic respiratory failure with hypoxia; L89.894 Pressure ulcer of other site, stage 4; E43 Unspecified severe protein-calorie malnutrition; L89.223 Pressure ulcer of left hip, stage 3; L89.114 Pressure ulcer of right upper back, stage 4; L89.154 Pressure ulcer of sacral region, stage 4; J96.22 Acute and chronic respiratory failure with hypercapnia; J44.0 Chronic obstructive pulmonary disease with (acute) lower respiratory infection; J45.901 Unspecified asthma with (acute) exacerbation; E87.1 Hypo-osmolality and hyponatremia; E87.2 Acidosis; J44.1 Chronic obstructive pulmonary disease with (acute) exacerbation; R64 Cachexia; Z99.11 Dependence on respirator [ventilator] status; I47.1 Supraventricular tachycardia; K31.6 Fistula of stomach and duodenum; B37.49 Other urogenital candidiasis; K94.23 Gastrostomy malfunction; Z93.0 Tracheostomy status; M41.9 Scoliosis, unspecified; D64.9 Anemia, unspecified; E83.39 Other disorders of phosphorus metabolism; I25.5 Ischemic cardiomyopathy; L30.4 Erythema intertrigo; Z88.0 Allergy status to penicillin; Z91.013 Allergy to seafood; R74.0 Nonspecific elevation of levels of transaminase and lactic acid dehydrogenase [LDH]; S61.411A Laceration without foreign body of right hand, initial encounter; X58.XXXA Exposure to other specified factors, initial encounter; Y92.129 Unspecified place in nursing home as the place of occurrence of the external cause; L98.8 Other specified disorders of the skin and subcutaneous tissue; E88.09 Other disorders of plasma-protein metabolism, not elsewhere classified; J98.4 Other disorders of lung; Z91.19 Patient's noncompliance with other medical treatment and regimen; Z68.24 Body mass index [BMI] 24.0-24.9, adult; E87.6 Hypokalemia; Y84.9 Medical procedure, unspecified as the cause of abnormal reaction of the patient, or of later complication, without mention of misadventure at the time of the procedure; Y82.9 Unspecified medical devices associated with adverse incidents
CPT/HCPCS: 36415; 36600; 70030-TC; 71045; 83735; 83970; 84100; 84155; 84156; 84165; 84300; 84443; 84478; 85025; 87070; 87086; 93005; 93307; 94002; 94003; 94640; 94664; A4217; A4663; C9113; G0378; J0610; J0692; J1450; J1650; J1815; J2060; J2270; J2405; J2543; J2765; J2920; J2930; J3370; J3475; J3480; J3490; J3590; J7040; J7050; J7060; J7131; J8597; Q9967